=== PATIENT | female | born 1995 | race Caucasian/White ===

== ENCOUNTER 2023-09-12 21:21 | Outpatient (REF) | payer OTHER, SELFPAY ==
[2023-09-15 14:09] LABS: Age Gdln ACOG Testing Note (.); IGP, rfx Aptima HPV ASCU Note (.)
== END 2023-09-12 21:22 | disposition home or self-care (01) ==
LOC: LAB 21:21
PROVIDERS: Visit Provider Obstetrics & Gynecology
DX: Z12.4 Encounter for screening for malignant neoplasm of cervix (principal)
CPT/HCPCS: G0145

== ENCOUNTER 2024-09-16 20:10 | Outpatient (REF) | payer OTHER, SELFPAY ==
--- OUTSIDE RECORDS SUMMARY | 2024-09-16 20:26 | XMS_ITS | CCD ---
Author Organization [facility] Care Team Providers Care Clerk Entry Level Name Role Phone TIGRE JOHNSON Unavailable Unavailab le SYSTEM, PROVIDER NOT IN Unavailable Unavaila ble NON STAFF Primary Care Provider Unavailabl e DO Brendan Smith Jr Attending Provider Gracy Garcia Unavailable DR SULLY HUITRON Attending Unavailable ELANA, DR VIRK Consulting Unavailable ELANA, DR VIRK Admitting Unavailable SULLY HUITRON Attending Unavailable Ang Clark MD Primary Care Provider SANJEEV, ANG P Attending Unavailable SANJEEV, ANG P Primary Care Unavailable SANJEEV, ANG P Referring Unavailable SANJEEV, ANG P Primary Care Unavailable SANJEEV, ANG P Referring Unavailable SANJEEV, ANG P Primary Care Unavailable SANJEEV, ANG P Referring Unavailable SANJEEV, ANG P Primary Care Unavailable SANJEEV, ANG P Attending Unavailable SANJEEV, ANG P Referring Unavailable SANJEEV, ANG P Primary Care Unavailable SANJEEV, ANG P Attending Unavailable SANJEEV, ANG P Referring Unavailable SANJEEV, ANG P Primary Care Unavailable Unavailable Primary Care Provider Unavailabl e Allergies Allergy Classification Reported Allergen(s) Allergy Type Date of Onset Reaction(s) Facility (1 source) Penicillin V Drug Allergy Unknown [facility] Other (1 source) sulfaSALAzine Drug Allergy Unknown [facility] Other (6 sources) Penicillins; Translations: [PENICILLINS] Propensity to adverse reactions to drug 2 [facility] [employer] (7 sources) Sulfonamides (Antibiotic); Translations: [SULFA (SULFONAMIDE ANTIBIOTICS)] Propensity to adverse reactions to drug 2 [facility] (1 source) Penicillin G Drug Allergy 3 Rash [facility] Healthcare Medications Current Medications Medication Drug Class(es) Dates Sig (Normalized) Sig (Original) amphetamine aspartate 1.25 mg / amphetamine sulfate 1.25 mg / dextroamphetamine saccharate 1.25 mg / dextroamphetamine sulfate 1.25 mg oral tablet (14 sources) Central Nervous System Stimulant Start: 09-16-2024 take 1 tablet by mouth in the evening as needed, then take 1 tablet by mouth in the evening as needed dextroamphetamine- amphetamine (ADDERALL) 5 mg tablet Indications: Attention deficit hyperactivity disorder (ADHD), combined type Take one tablet by mouth between 12 pm and 1 pm as needed 30 tablet 09/16/2024 Active Start: 09-16-2024 take 1 capsule by mo ut once daily in the morning amphetamine-dextroamphetamine XR (ADDERA LL XR) 20 mg 24 hr capsule Indications: Attention deficit hyperactivity disorder (ADHD), combined type Take 1 capsule (20 mg total) by mouth every morning. Max Daily Amount: 20 mg 30 capsule 09/16/2024 Active Start: 08-14-2024 End: 09-14-2024 take 1 capsule by mouth once daily in the morning amphetamine-dextroamphetamine XR (ADDERA LL XR) 20 mg 24 hr capsule Indications: Attention deficit hyperactivity disorder (ADHD), combined type Take 1 capsule (20 mg total) by mouth every morning. Max Daily Amount: 20 mg 30 capsule 08/14/2024 09/14/2024 Discontinued (Reorder) Start: 07-09-2024 End: 08-14-2024 take 2 capsules by mouth once daily in the morning amphetamine-dextroamphetamine XR (ADDERA LL XR) 10 mg 24 hr capsule Indications: Attention deficit hyperactivity disorder (ADHD), combined type Take 2 capsules (20 mg total) by mouth every morning. Max Daily Amount: 20 mg 60 capsule 08/08/2024 08/14/2024 Discontinued (Reorder) Start: 07-08-2024 End: 09-14-2024 take 1 tablet by mouth in the evening as needed, then take 1 tablet by mouth in the evening as needed dextroamphetamine-amphetamine (ADDERALL) 5 mg tablet Indications: Attention deficit hyperactivity disorder (ADHD), combined type Take one tablet by mouth between 12 pm and 1 pm as needed 30 tablet 08/08/2024 09/14/2024 Discontinued (Reorder) Start: 01-08-2024 take 1 capsule by mo uth once daily in the morning amphetamine-dextroamphetamine XR (ADDERA LL XR) 10 mg 24 hr capsule Indications: Attention deficit hyperactivity disorder (ADHD), combined type Take 1 capsule (10 mg total) by mouth in the morning. Max Daily Amount: 10 mg. 30 capsule 0 01/08/2024 Active etonogestrel 68 mg drug impl ant (7 sources) Progestin etonogestrel-elu ting (Nexplanon) 68 mg contraceptive implant as directed Subcutaneous Active etonogestreL (NE XPLANON) 68 mg implant 1 each (68 mg total) by subdermal route once. Active gwastzsd-pyvg-MK-calcium &mi ns (THERAGRAN-M) 9 mg iron-400 mcg tablet (5 sources) ijiwrhpv-krpx-HV -calcium &mins (THERAGRAN-M) 9 mg iron-400 mcg tablet Take 1 tablet by mouth in the morning. Active zyhpdkfw-slev-JV -calcium &mins (THERAGRAN-M) 9 mg iron-400 mcg tablet Take 1 tablet by mouth in the morning. 0 Active Multivitamin preparation (1 source) take 1 tablet by niraj th once daily Multivitamin - 1 tablet Orally Once a day Active Completed/Discontinued Medications Medication Drug Class(es) Dates Sig (Normalized) Sig (Original) 24 hr dexmethylphenidate hydrochloride 15 mg extended release oral capsule (1 source) Central Nervous System Stimulant Start: 01-08-2024 End: 01-08-2024 take 1 capsule by mouth once daily dexmethylphenidate XR (FOCALIN XR) 15 mg 24 hr capsule Indications: Attention deficit hyperactivity disorder (ADHD), combined type Take 1 capsule (15 mg total) by mouth daily. Max Daily Amount: 15 mg 30 capsule 0 01/08/2024 01/08/2024 Discontinued Problems Active Problems Problem Classification Problem Date Documented Date Episodic/Chronic Attention-deficit, conduct, and disruptive behavior disorders (4 sources) Attention deficit hyperactivity disorder, combined type; Translations: [Attention-deficit hyperactivity disorder, combined type] 01-08-2024 Chronic Attention-deficit, conduct, and disruptive behavior disorders (1 source) Attention-deficit hyperactivity disorder, combined type; Translations: [Attention-deficit hyperactivity disorder, combined type] Onset: 01-08-2024 Chronic Immunizations and screening for infectious disease (1 source) Encounter for screening for human papillomavirus (HPV); Translations: [ENC SCREENING HUMAN PAPILLOMAVIRUS] Onset: 09-10-2022 Episodic Medical examination/evaluatio n (2 sources) Encounter for general adult medical examination without abnormal findings; Translations: [Encounter for general adult medical examination without abnormal findings] Onset: 02-13-2018 Episodic Unclassified (1 source) New Patient Onset: 01-08-2024 Past or Other Problems Problem Classification Problem Date Documented Da te Episodic/Chronic Mood disorders (5 sources) Mood disorders Onset: 01-08-2024 Resolved: 04-08-2024 01-08-2024 Other screening for suspected conditions (not mental disorders or infectious disease) (10 sources) Encounter for screening for malignant neoplasm of cervix; Translations: [Patient encounter status] Onset: 09-06-2022 Episodic Results Test Name Value Interpretation Reference Range Facility BASIC METABOLIC PANLon 01-22 Anion gap [Moles/Vol] 8 mmol/L Normal 5-15 [facility] Comment on above: Performed By: #### B MP #### [facility] ([id number]) [address] [place] [address] Calcium [Mass/Vol] 10.1 mg/dL Normal 8.5-10.5 [facility] Comment on above: Performed By: #### B MP #### [facility] ([id number]) [address], [address] [place] [address] Chloride [Moles/Vol] 100 mmol/L Normal 98-109 [facility] Comment on above: Performed By: #### B MP #### [facility] ([id number]) [address] [place] [address] CO2 [Moles/Vol] 30 mmol/L Normal 22-32 [facility] Comment on above: Performed By: #### B MP #### [facility] ([id number]) [address] [place] [address] Creatinine [Mass/Vol] 1.13 mg/dL High 0.40-1.00 [facility] Comment on above: Result Comment: METH OD TRACEABLE TO IDMS STANDARD Performed By: #### B MP #### [facility] ([id number]) [address], [address] [place] [address] GFR/1.73 sq M.predicted among non-blacks MDRD (S/P/Bld) [Vol rate/Area] 68 mL/min/{1.73_m2} Normal >59 [facility] Comment on above: Result Comment: Reported eGFR is based on the CKD-EPI 2020 equation that does not use a race coefficient. Performed By: #### B MP #### [facility] ([id number]) [address], [address] [place] [address] Glucose [Mass/Vol] 79 mg/dL Normal 65-99 [facility] Comment on above: Performed By: #### B MP #### [facility] ([id number]) [address] [facility] [facility] [place] [address] Potassium [Moles/Vol] 4.1 mmol/L Normal 3.5-5.0 [facility] Comment on above: Performed By: #### B MP #### [facility] ([id number]) [address], [address] [place] [address] Sodium [Moles/Vol] 138 mmol/L Normal 134-146 [facility] Comment on above: Performed By: #### B MP #### [facility] ([id number]) [address], [address] [place] [address] Urea nitrogen [Mass/Vol] 14 mg/dL Normal 5-23 [facility] Comment on above: Performed By: #### B MP #### [facility] ([id number]) [address] [place] [address] URINALYSISon 01-23-2024 Bilirubin Ql (U) Negative Normal NEG [facility] BLOOD/HGB Negative Normal NEG [facility] Color (U) YELLOW Normal YELLOW [facility] Glucose Ql (U) Negative Normal NEG [facility] Ketones Ql (U) Negative Normal NEG [facility] Leukocyte esterase Test strip Ql (U) Negative Normal NEG [facility] Nitrite Ql (U) Negative Normal NEG [facility] pH (U) 7.5 [pH] Normal 5.0-8.5 [facility] Protein Ql (U) Trace Abnormal NEG [facility] R.B.CELLS <1 Normal 0-5 [facility] Specific gravity (U) [Rel density] 1.011 Normal 1.003-1.035 [facility] SQUAMOUS EPITHELIUM 1 /hpf Normal 0-5 [facility] TURBIDITY CLEAR Normal CLEAR [facility] Urobilinogen (U) [Mass/Vol] mg/dL Normal <1.1 [facility] W.B.CELLS 1 /hpf Normal 0-5 [facility] BASIC METABOLIC PANLon 01-08 Anion gap [Moles/Vol] 9 mmol/L Normal 5-15 [facility] Comment on above: Performed By: #### Jadiel ROSS, 62309-3 #### [facility] ([id number]) [address] [place] [address] Calcium [Mass/Vol] 9.7 mg/dL Normal 8.5-10.5 [facility] Comment on above: Performed By: #### Jadiel ROSS, 97904-4 #### [facility] ([id number]) [address] [place] [address] Chloride [Moles/Vol] 101 mmol/L Normal 98-109 [facility] Comment on above: Performed By: #### Jadiel ROSS, 83092-6 #### [facility] ([id number]) [address] [place] [address] CO2 [Moles/Vol] 30 mmol/L Normal 22-32 [facility] Comment on above: Performed By: #### Jadiel ROSS, 91072-7 #### [facility] ([id number]) [address] [place] [address] Creatinine [Mass/Vol] 1.22 mg/dL High 0.40-1.00 [facility] Comment on above: Result Comment: METH OD TRACEABLE TO IDMS STANDARD Performed By: #### Jadiel ROSS, 98731-2 #### [facility] ([id number]) [address] [place] [address] GFR/1.73 sq M.predicted among non-blacks MDRD (S/P/Bld) [Vol rate/Area] 62 mL/min/{1.73_m2} Normal >59 [facility] Comment on above: Result Comment: Reported eGFR is based on the CKD-EPI 2020 equation that does not use a race coefficient. Performed By: #### Jadiel ROSS, 23277-8 #### [facility] ([id number]) [address] [place] [address] Glucose [Mass/Vol] 82 mg/dL Normal 65-99 [facility] Comment on above: Performed By: #### Jadiel ROSS, 65535-0 #### [facility] ([id number]) [address] [place] [address] Potassium [Moles/Vol] 4.1 mmol/L Normal 3.5-5.0 [facility] Comment on above: Performed By: #### Jadiel ROSS, 48849-1 #### [facility] ([id number]) [address] [place] [address] Sodium [Moles/Vol] 140 mmol/L Normal 134-146 [facility] Comment on above: Performed By: #### Jadiel ROSS, 35116-4 #### [facility] ([id number]) [address] [place] [address] Urea nitrogen [Mass/Vol] 18 mg/dL Normal 5-23 [facility] Comment on above: Performed By: #### Jadiel ROSS, 64766-0 #### [facility] ([id number]) [address], [facility] [address] [place] [address] Lipid 1996 panelon 4 Cholesterol [Mass/Vol] 237 mg/dL High 150-200 [facility] Comment on above: Performed By: #### Jadiel ROSS, 80061-3 #### [facility] ([id number]) [address], [facility] [address] [place] [address] Cholesterol in HDL [Mass/Vol] 85 mg/dL Normal >39 [facility] Comment on above: Result Comment: HDL <40 mg/dL - High Risk HDL > or = 40mg/dL- Desirable HDL >60 mg/dL - Negative Risk Performed By: #### Jadiel ROSS, 88243-8 #### [facility] ([id number]) [address], [address] [address] Cholesterol in LDL [Mass/Vol] 140 mg/dL High <130 [facility] Comment on above: Result Comment: LDL <100 mg/dL - Desirable LDL >160 mg/dL - High Risk Performed By: #### Jadiel ROSS, 61878-9 #### [facility] ([id number]) [address], [address] [place] [address] Cholesterol in VLDL [Mass/Vol] 12 mg/dL Normal 0-30 [facility] Comment on above: Performed By: #### Jadiel ROSS, 48007-3 #### [facility] ([id number]) [address], [address] [place] [address] CHOLESTEROL:HDL 2.8 Normal 1.0-5.0 [facility] Comment on above: Performed By: #### B CODY, 45978-1 #### [facility] ([id number]) [address], [address] [place] [address] Triglyceride [Mass/Vol] 59 mg/dL Normal 27-150 P [facility] Comment on above: Performed By: #### B CODY, 39788-3 #### [facility] ([id number]) [address], [address] [place] [address] PAP ACOG PANEL 2: 21 to 29on 09-15-2022 . . Normal [facility] Comment on above: Performed By: #### 4 [id number] #### [facility] [address] [place] [address] Dr. Elizabeth Perkins Age Gdln ACOG Testing - [facility] Comment on above: Performed By: #### 4 [id number] #### [facility] [address] [address] [address] Elizabeth Perkins DIAGNOSIS: Comment [facility] Comment on above: Result Comment: NEGA TIVE FOR INTRAEPITHELIAL LESION OR MALIGNANCY. Performed By: #### 4 [id number] #### [facility] [address] [place] [address] Dr. Elizabeth Perkins Methodology: Comment [facility] Comment on above: Result Comment: This liquid based ThinPrep(R) pap test was screened with the use of an image guided system. Performed By: #### 4 [id number] #### [facility] [address] [place] [address] Dr. Elizabeth Perkins Note: Comment [facility] Comment on above: Result Comment: The Pap smear is a screening test designed to aid in the detection of premalignant and malignant conditions of the uterine cervix. It is not a diagnostic procedure and should not be used as the sole means of detecting cervical cancer. Both false-positive and false-negative reports do occur. . Performed By: #### 4 [id number] #### [facility] [address] [address] [address] Elizabeth Perkins Performed by: Comment Normal [facility] Comment on above: Result Comment: Loni Piedra, Comber Setter (ASCP) Performed By: #### 4 [id number] #### [facility] [address] [address] [address] Elizabeth Perkins Reflex Criteria: Comment Normal [facility] Comment on above: Result Comment: The HPV DNA reflex criteria were not met with this specimen result therefore, no HPV testing was performed. . Performed By: #### 4 [id number] #### [facility] [address] [address] [address] Elizabeth Perkins Specimen adequacy: Comment Normal [facility] Comment on above: Result Comment: Sati sfactory for evaluation. Endocervical and/or squamous metaplastic cells (endocervical component) are present. Performed By: #### 4 [id number] #### [facility] [address] [address] [address] Elizabeth Perkins Albumin [Mass/volume] in Ser um or PlasmaOrdered By: Brendan Smith on 04-07-2022 Albumin [Mass/Vol] 4.2 g/dL 3.2-5.5 [facility] Cholesterol [Mass/volume] in Serum or PlasmaOrdered By: Brendan Smith on 04-07-2022 Cholesterol [Mass/Vol] 207 mg/dL 140-200 [facility] Comment on above: Chol less than 200 m g/dl low risk Chol 201-239 mg/dl borderline risk Chol 240 mg/dl and greater high risk Cholesterol in LDL Calc [Mas s/Vol]Ordered By: Brendan Smith on 04-07-2022 Cholesterol in LDL [Mass/Vol] 110 mg/dL 0-100 [facility] Comment on above: LDL ATP III CLASSIFI CATION LDL less than 100 mg/dL Optimal LDL 100-129 mg/dL Near or above optimal LDL 130-159 mg/dL Borderline high LDL 160-189 mg/dL High LDL greater than 189 mg/dL Very high Cholesterol in VLDL Calc [Ma ss/Vol]Ordered By: Brendan Smith on 04-07-2022 Cholesterol in VLDL [Mass/Vol] 15 mg/dL [facility] Comprehensive Metabolic Empo n 04-07-2022 Albumin [Mass/Vol] 4.2 g/dL Normal 3.2-5.5 [facility] Comment on above: Performed By: #### E BS CMP, EBS LIPID #### [facility] [address] [place] [address] [place] Albumin/Globulin [Mass ratio] 1.6 {ratio} Normal [facility] Comment on above: Performed By: #### E BS CMP, EBS LIPID #### [facility] [address] [place] [address] [place] ALP [Catalytic activity/Vol] 47 U/L Normal 32-92 [facility] Comment on above: Performed By: #### E BS CMP, EBS LIPID #### [facility] [address] [id number] [place] ALT [Catalytic activity/Vol] 35 U/L Normal 10-60 [facility] Comment on above: Performed By: #### E BS CMP, EBS LIPID #### [facility] [address] [id number] [place] AST [Catalytic activity/Vol] 33 U/L Normal 10-42 [facility] Comment on above: Performed By: #### E BS CMP, EBS LIPID #### [facility] [address] [id number] [place] Bilirubin [Mass/Vol] 0.4 mg/dL Normal 0.3-1.2 [facility] Comment on above: Performed By: #### E BS CMP, EBS LIPID #### [facility] [address] [id number] [place] Calcium [Mass/Vol] 9.7 mg/dL Normal 8.2-10.2 [facility] Comment on above: Performed By: #### E BS CMP, EBS LIPID #### [facility] [address] [id number] [place] Chloride [Moles/Vol] 103 mmol/L Normal 95-114 [facility] Comment on above: Performed By: #### E BS CMP, EBS LIPID #### [facility] [address] [place] [address] [place] CO2 [Moles/Vol] 27.8 mmol/L Normal 22.0-30.0 [facility] Comment on above: Performed By: #### E BS CMP, EBS LIPID #### [facility] [address] Creatinine [Mass/Vol] 1.07 mg/dL High 0.44-1.03 [facility] Comment on above: Performed By: #### E BS CMP, EBS LIPID #### [facility] [address] Estimated GFR ( Claritza > [address] [facility] Comment on above: Result Comment: GFR estimated reference range: According to KDOQI guidelines, <60 ml/min/1.73m2 is sufficient to diagnose a patient with chronic kidney disease. Performed By: #### E BS CMP, EBS LIPID #### [facility] [address] Estimated GFR (Non- Am > [address] [facility] Comment on above: Performed By: #### E BS CMP, EBS LIPID #### [facility] [address] Globulin (S) [Mass/Vol] 2.6 g/dL Normal [facility] Comment on above: Performed By: #### E BS CMP, EBS LIPID #### [facility] [address] [place] [address] [place] Glucose [Mass/Vol] 82 mg/dL Normal 70-100 [facility] Comment on above: Performed By: #### E BS CMP, EBS LIPID #### [facility] [address] [place] [address] [place] Potassium [Moles/Vol] 4.6 mmol/L Normal 3.5-5.1 [facility] Comment on above: Performed By: #### E BS CMP, EBS LIPID #### [facility] [address] [place] [address] [place] Protein [Mass/Vol] 6.8 g/dL Normal 6.1-7.9 [facility] Comment on above: Performed By: #### E BS CMP, EBS LIPID #### [facility] [address] [place] [address] [place] Sodium [Moles/Vol] 139 mmol/L Normal 136-146 [facility] Comment on above: Performed By: #### E BS CMP, EBS LIPID #### [facility] [address] [place] [address] [place] Urea nitrogen [Mass/Vol] 11 mg/dL Normal 9- [facility] Comment on above: Performed By: #### E BS CMP, EBS LIPID #### [facility] [address] [place] [address] [place] Creatinine and Glomerular fi ltration rate.predicted panel (S/P/Bld)Ordered By: Brendan Smith on 04-07-2022 Creatinine [Mass/Vol] 1.07 mg/dL 0.44-1.03 [facility] Estimated glomerular filtrat ion rate (GFR) non- AmericanOrdered By: Brendan Smith on 04-07-2022 GFR/1.73 sq M.predicted among non-blacks MDRD (S/P/Bld) [Vol rate/Area] > 60 mL/Min [facility] Globulin Calc (S) [Mass/Vol] Ordered By: Brendan Smith on 04-07-2022 Globulin (S) [Mass/Vol] 2.6 g/dL [facility] - Chemistry and C hemistry - challengeOrdered By: Brendan Smith on 04-07-2022 Glucose [Mass/Vol] 82 mg/dL 70-100 [facility] Lipid Profileon 04-07-2022 Cholesterol [Mass/Vol] 207 mg/dL High 140-200 [facility] Comment on above: Result Comment: Chol less than 200 mg/dl low risk Chol 201-239 mg/dl borderline risk Chol 240 mg/dl and greater high risk Performed By: #### E BS CMP, EBS LIPID #### [facility] [address] [place] [address] [place] Cholesterol in HDL [Mass/Vol] 82 mg/dL Normal 35-85 [facility] Comment on above: Result Comment: HDL CHOL ATP-III CLASSIFICATION Cardiovascular Risk HDL > or equal to 60 mg/dL LOW HDL < 40 mg/dL HIGH Performed By: #### E BS CMP, EBS LIPID #### [facility] [address] Cholesterol.total/Myla sterol in HDL [Mass ratio] 2.5 {ratio} Normal <5.0 [facility] Comment on above: Result Comment: PERF ORMED BY: [place] [id number] PATHOLOGIST HOSPICE ART THERAPIST ESTELA DOWLING M.D. Performed By: #### E BS CMP, EBS LIPID #### [facility] [address] [place] [address] LDL Cholesterol,Calculated 110 mg/dL High 0-100 [facility] Comment on above: Result Comment: LDL ATP III CLASSIFICATION LDL less than 100 mg/dL Optimal LDL 100-129 mg/dL Near or above optimal LDL 130-159 mg/dL Borderline high LDL 160-189 mg/dL High LDL greater than 189 mg/dL Very high Performed By: #### E BS CMP, EBS LIPID #### [facility] [address] [place] [address] Triglyceride w/Reflex 75 mg/dL Normal 35-149 [facility] Comment on above: Result Comment: TRIG ATP III CLASSIFICATION TRIG less than 150 mg/dL Normal TRIG 150-199 mg/dL Borderline high TRIG 200-500 mg/dL High TRIG greater than 500 mg/dL Very high Standard traceable to the Center for Disease Conrtrol and Prevention (CDC) test method. Performed By: #### E BS CMP, EBS LIPID #### [facility] [address] VLDL CHOLESTEROL 15 mg/dL Normal [facility] Comment on above: Performed By: #### E BS CMP, EBS LIPID #### [facility] [address] [place] [address] No Panel InformationOrdered By: Brendan Smith on 04-07-2022 Estimated GFR () > 60 mL/Min [facility] Comment on above: GFR estimated refere nce range: According to KDOQI guidelines, <60 ml/min/1.73m2 is sufficient to diagnose a patient with chronic kidney disease. Pharmacy Creatinine Clearance (Chem N/A [facility] Triglycerides Reflex 75 mg/dL 35-149 [facility] Comment on above: TRIG ATP III CLASSIF ICATION TRIG less than 150 mg/dL Normal TRIG 150-199 mg/dL Borderline high TRIG 200-500 mg/dL High TRIG greater than 500 mg/dL Very high Standard traceable to the Center for Disease Conrtrol and Prevention (CDC) test method. Protein [Mass/volume] in Ser um or PlasmaOrdered By: Brendan Smith on 04-07-2022 Protein [Mass/Vol] 6.8 g/dL 6.1-7.9 [facility] Serum or plasma alanine nicholas otransferase measurement without P-5'-P (enzymatic activiOrdered By: Brendan Smith on 04-07-2022 ALT No additional P-5'-P [Catalytic activity/Vol] 35 U/L 10-60 [facility] Serum or plasma albumin/glob ulin mass ratioOrdered By: Brendan Smith on 04-07-2022 Albumin/Globulin [Mass ratio] 1.6 {ratio} [facility] Serum or plasma alkaline kirk sphatase measurement (enzymatic activity/volume)Ordered By: Brendan Smith on 04-07-2022 ALP [Catalytic activity/Vol] 47 U/L 32-92 [facility] Serum or plasma aspartate am inotransferase measurement (enzymatic activity/volume)Ordered By: Brendan Smith on 04-07-2022 AST [Catalytic activity/Vol] 33 U/L 10-42 [facility] Serum or plasma calcium deondre urement (mass/volume)Ordered By: Brendan Smith on 04-07-2022 Calcium [Mass/Vol] 9.7 mg/dL 8.2-10.2 [facility] Serum or plasma chloride jessica surement (moles/volume)Ordered By: Brendan Smith on 04-07-2022 Chloride [Moles/Vol] 103 mmol/L 95-114 [facility] Serum or plasma high density lipoprotein (HDL) cholesterol measurementOrdered By: Brendan Smith on 04-07-2022 Cholesterol in HDL [Mass/Vol] 82 mg/dL 35-85 [facility] Comment on above: HDL CHOL ATP-III CLA SSIFICATION Cardiovascular Risk HDL > or equal to 60 mg/dL LOW HDL < 40 mg/dL HIGH Serum or plasma potassium me asurement (moles/volume)Ordered By: Brendan Smith on 04-07-2022 Potassium [Moles/Vol] 4.6 mmol/L 3.5-5.1 [facility] Serum or plasma sodium measu rement (moles/volume)Ordered By: Brendan Smith on 04-07-2022 Sodium [Moles/Vol] 139 mmol/L 136-146 [facility] Serum or plasma total biliru bin measurement (mass/volume)Ordered By: Brendan Smith on 04-07-2022 Bilirubin [Mass/Vol] 0.4 mg/dL 0.3-1.2 [facility] Serum or plasma total carbon dioxide measurement (moles/volume)Ordered By: Brendan Smith on 04-07-2022 CO2 [Moles/Vol] 27.8 mmol/L 22.0-30.0 [facility] Serum or plasma total choles terol/high density lipoprotein (HDL) cholesterol mass ratOrdered By: Brendan Smith on 04-07-2022 Cholesterol.total/Myla sterol in HDL [Mass ratio] 2.5 {ratio} [facility] Serum or plasma urea nitroge n measurement (mass/volume)Ordered By: Brendan Smith on 04-07-2022 Urea nitrogen [Mass/Vol] 11 mg/dL 07-08 [facility] Vital Signs Date Time Vital Sign Value Performing Clinician Facility 01-08-2024 08:42-0400 Body height 165.1 cm Ang Clark MD Work Phone: [facility] 01-08-2024 08:42-0400 Body mass index (BMI) [Ratio] 21.63 kg/m2 Ang Clark MD Work Phone: [facility] 01-08-2024 08:42-0400 Body weight 58.97 kg Ang Clark MD Work Phone: [facility] 01-08-2024 08:42-0400 Diastolic blood pressure 80 mm[Hg] Ang Clark MD Work Phone: [email or web address] 01-08-2024 08:42-0400 Heart rate 64 /min Ang Clark MD Work Phone: [email or web address] 01-08-2024 08:42-0400 Respiratory rate 18 /min Ang Clark MD Work Phone: [email or web address] 01-08-2024 08:42-0400 SaO2% (BldA) [Mass fraction] 92 % Ang Clark MD Work Phone: [email or web address] 01-08-2024 08:42-0400 Systolic blood pressure 120 mm[Hg] Ang Clark MD Work Phone: [email or web address] 05-25-2022 09:00-0400 Body height 166.37 cm Gracy Garcia Other [facility] Other 05-25-2022 09:00-0400 Body mass index (BMI) [Ratio] 20.42 kg/m2 Gracy Garcia Other [facility] Other 05-25-2022 09:00-0400 Body temperature 96.9 [degF] Gracy Garcia Other [facility] Other 05-25-2022 09:00-0400 Body weight 56.52 kg Gracy Garcia Other [facility] Other 05-25-2022 09:00-0400 Diastolic blood pressure 60 mm[Hg] Gracy Garcia Other [facility] Other 05-25-2022 09:00-0400 Respiratory rate 18 /min Gracy Garcia Other [facility] Other 05-25-2022 09:00-0400 SaO2% (BldA) [Mass fraction] 96 % Gracy Garcia Other [facility] Other 05-25-2022 09:00-0400 Systolic blood pressure 100 mm[Hg] Gracy Garcia Other [facility] Other Encounters Encounter Date Encounter Type Care Provider Facility Start: 09-16-2024 End: 09-16-2024 Bamboo flowsheet Sully Elana DO Work Phone: [facility] Start: 09-16-2024 End: 09-16-2024 Bamboo flowsheet Sully Elana DO Work Phone: [facility] Start: 09-14-2024 End: 09-16-2024 Refill Ang Clark MD Work Phone: [facility] Comment on above: Attention deficit hy peractivity disorder (ADHD), combined type Start: 08-14-2024 End: 08-14-2024 Refill Ang Clark MD Work Phone: [facility] Comment on above: Attention deficit hy peractivity disorder (ADHD), combined type Start: 08-08-2024 End: 08-08-2024 Refill Ang Clark MD Work Phone: [facility] Comment on above: Attention deficit hy peractivity disorder (ADHD), combined type Start: 07-08-2024 End: 07-08-2024 ambulatory ANG P SANJEEV [facility] Start: 04-08-2024 End: 04-08-2024 ambulatory ANG P SANJEEV [facility] Start: 01-23-2024 End: 01-23-2024 ambulatory ANG P SANJEEV [facility] Start: 01-09-2024 End: 01-09-2024 Orders Only Ang Clark MD Work Phone: [facility] Comment on above: Elevated serum creat inine (Primary Dx); Decreased GFR Start: 01-08-2024 End: 01-08-2024 Office outpatient visit 25 minutes Ang Clark MD Work Phone: [facility] Comment on above: Attention deficit hy peractivity disorder (ADHD), combined type (Primary Dx); Screening, lipid Start: 01-08-2024 End: 01-10-2024 ambulatory ANG CLARK [facility] Start: 09-12-2023 End: 09-12-2023 ambulatory SULLY HUITRON Not Available Start: 09-06-2022 End: 09-06-[address] SULLY HUITRON Facility:[facility] Start: 05-25-2022 End: 05-25-2022 ambulatory Gracy Garcia Other [facility] Other Start: 05-25-2022 Encounter for genera l adult medical examination without abnormal findings Gracy Garcia [facility] Start: 05-25-2022 Initial preventive medicine new pt age 18-39yrs Gracy Garcia [facility] [place] Start: 04-07-2022 End: 04-07-2022 Departed Referred [facility] 250 Start: 02-13-2018 End: 02-13-2018 Ambulatory TIGRE ESPINOSA [facility] Start: 07-27-2017 End: 07-27-2017 Ambulatory PROVIDER NOT IN SYSTEM [facility] Procedures Date Procedure Procedure Detail Performing Clinician Start: 04-08-2024 Follow-up visit Follow-up ANG CLARK Start: 04-08-2024 Adult depression scr eening assessment Ang Clark MD Work Phone: Start: 01-08-2024 Adult depression scr eening assessment Ang Clark MD Work Phone: Start: 09-06-2022 Microscopic observat ion [Identifier] in Cervix by Cyto stain Ang Clark MD Work Phone: Plan of Treatment Date Care Activity Detail Author Start: 04-07-2032 DTaP,Tdap and Td Vaccines (8 - Td or Tdap) DTaP,Tdap and Td Vaccines (8 - Td or Tdap) [facility] Start: 09-06-2025 Screening for malign ant neoplasm of cervix Pap Smear [facility] Start: 04-08-2025 Adult BMI Screening Adult BMI Screen ing [facility] Start: 04-08-2025 Depression Screening Depression Scre ening [facility] Start: 04-08-2025 Tobacco Screening Tobacco Screening [facility] Start: 01-07-2025 Adult BMI Screening Adult BMI Screen ing [facility] Start: 01-07-2025 Depression Screening Depression Scre ening [facility] Start: 01-07-2025 Tobacco Screening Tobacco Screening [facility] Start: 10-08-2024 End: 10-08-2024 Telemedicine consultation with patient 10/08/2024 8:00 AM EST Telemedicine [facility] [address] [place] [phone] Ang Clark MD [address] [place] [id number] [facility] Start: 09-16-2024 End: 09-16-2024 Patient encounter procedure 09/16/2024 1:00 PM EST Office Visit [facility] [address] [place] [phone] Sully Huitron DO [address] [place] [address] Arrived [facility] Comment on above: Arrived Start: 06-16-2024 COVID-19 Vaccine ( season) COVID-19 Vaccine ( season) [facility] Start: 06-16-2024 COVID-19 Vaccine ( season) COVID-19 Vaccine ( season) [facility] Start: 06-16-2024 Influenza vaccination [facility] Start: 04-08-2024 End: 04-08-2024 Patient encounter procedure 04/08/2024 4:00 PM EDT Office Visit [facility] [address] [place] [phone] Ang Clark MD [address] [address] [facility] Start: 01-23-2024 End: 01-23-2024 Patient encounter procedure 01/23/2024 2:30 PM EDT Appointment [email or web address] [place] [facility] [address] [place] [address] [email or web address] [place] [facility] Start: 01-09-2024 End: 01-09-2024 Patient encounter procedure 01/09/2024 7:10 AM EDT Appointment [email or web address] [place] [facility] [place] [address] [email or web address] [place] [facility] Start: 06-16-2023 COVID-19 Vaccine ( season) COVID-19 Vaccine () [facility] Start: 11-08-2021 DTaP,Tdap and Td Vaccines (7 - Td or Tdap) DTaP,Tdap and Td Vaccines (7 - Td or Tdap) [facility] End: 01-07-2025 Basic metabolic 2000 panel - Serum or Plasma Basic Metabolic Panel Lab Routine Attention deficit hyperactivity disorder (ADHD), combined type 1 Occurrences starting 01/08/2024 until 01/07/2025 [facility] Comment on above: 1 Occurrences starti ng 01/08/2024 until 01/07/2025 End: 01-08-2025 Basic metabolic 2000 panel - Serum or Plasma Basic Metabolic Panel Lab Routine Elevated serum creatinine Decreased GFR 1 Occurrences starting 01/09/2024 until 01/08/2025 [facility] Work Phone: Comment on above: 1 Occurrences starti ng 01/09/2024 until 01/08/2025 End: 01-07-2025 Lipid 1996 panel - Serum or Plasma Lipid profile Lab Routine Screening, lipid 1 Occurrences starting 01/08/2024 until 01/07/2025 [facility] Work Phone: Comment on above: 1 Occurrences starti ng 01/08/2024 until 01/07/2025 End: 01-08-2025 Urinalysis Urinalysis (clean catch) Lab Routine Elevated serum creatinine Decreased GFR 1 Occurrences starting 01/09/2024 until 01/08/2025 [facility] Comment on above: 1 Occurrences starti ng 01/09/2024 until 01/08/2025 Immunizations Immunization Date Immunization Notes Care Provider Fa [facility] 08-04-2023 influenza, injectabl e, quadrivalent, preservative free Ang Clark MD Work Phone: [facility] 08-04-2023 influenza virus vacc ine, unspecified formulation Ang Clark MD Work Phone: [facility] 04-07-2022 tetanus toxoid, redu alfredo diphtheria toxoid, and acellular pertussis vaccine, adsorbed Ang Clark MD Work Phone: [facility] 06-10-2019 Influenza, injectabl e, Madin [place] Canine Kidney, preservative free, quadrivalent Ang Clark MD Work Phone: [facility] 03-30-2018 hepatitis B vaccine, adult dosage Ang Clark MD Work Phone: [facility] 02-27-2018 hepatitis B vaccine, adult dosage Ang Clark MD Work Phone: [facility] 07-18-2016 influenza, injectabl e, quadrivalent, preservative free Ang Clark MD Work Phone: [facility] 07-20-2015 influenza, injectabl e, quadrivalent, preservative free Ang Clark MD Work Phone: [facility] 06-19-2012 hepatitis A vaccine, pediatric/adolescent dosage, 2 dose schedule Ang Clark MD Work Phone: [facility] 05-22-2012 human papilloma viru s vaccine, quadrivalent Ang Clark MD Work Phone: [facility] 05-22-2012 meningococcal polysaccharide (groups A, C, Y and W-135) diphtheria toxoid conjugate vaccine (MCV4P) Ang Clark MD Work Phone: [facility] 02-14-2012 human papilloma viru s vaccine, quadrivalent Ang Clark MD Work Phone: [facility] 11-08-2011 hepatitis A vaccine, pediatric/adolescent dosage, 2 dose schedule Ang Clark MD Work Phone: [facility] 11-08-2011 human papilloma viru s vaccine, quadrivalent Ang Clark MD Work Phone: [facility] 11-08-2011 tetanus toxoid, redu alfredo diphtheria toxoid, and acellular pertussis vaccine, adsorbed Ang Clark MD Work Phone: [facility] 05-21-2001 diphtheria, tetanus toxoids and acellular pertussis vaccine, unspecified formulation Ang Clark MD Work Phone: [facility] 05-21-2001 measles, mumps and rubella virus vaccine Ang Clark MD Work Phone: [facility] 09-29-1997 diphtheria, tetanus toxoids and pertussis vaccine Ang Clark MD Work Phone: [facility] 09-29-1997 haemophilus influenz ae type b vaccine, conjugate unspecified formulation Ang Clark MD Work Phone: [facility] 09-29-1997 poliovirus vaccine, unspecified formulation Ang Clark MD Work Phone: [facility] 06-30-1997 diphtheria, tetanus toxoids and pertussis vaccine Ang Clark MD Work Phone: [facility] 06-30-1997 measles, mumps and rubella virus vaccine Ang Clark MD Work Phone: [facility] 1996 diphtheria, tetanus toxoids and pertussis vaccine Ang Clark MD Work Phone: [facility] 1996 hepatitis B vaccine, pediatric or pediatric/adolescent dosage Ang Clark MD Work Phone: [facility] 1996 poliovirus vaccine, unspecified formulation Ang Clark MD Work Phone: [facility] 1996 diphtheria, tetanus toxoids and pertussis vaccine Ang Clark MD Work Phone: [facility] 1996 haemophilus influenz ae type b vaccine, conjugate unspecified formulation Ang Clark MD Work Phone: [facility] 1996 poliovirus vaccine, unspecified formulation Ang Clark MD Work Phone: [facility] 1996 diphtheria, tetanus toxoids and pertussis vaccine Ang Clark MD Work Phone: [facility] 1996 haemophilus influenz ae type b vaccine, conjugate unspecified formulation Ang Clark MD Work Phone: [facility] 1996 hepatitis B vaccine, pediatric or pediatric/adolescent dosage Ang Clark MD Work Phone: [facility] 1996 poliovirus vaccine, unspecified formulation Ang Clark MD Work Phone: [facility] 1996 haemophilus influenz ae type b vaccine, conjugate unspecified formulation Ang Clark MD Work Phone: [facility] 1996 hepatitis B vaccine, pediatric or pediatric/adolescent dosage Ang Clark MD Work Phone: [facility] Payers Date Payer Category Payer Commercial Managed C are - PPO [employer] [id number] 2023 Unknown [employer] M MO [employer] [id number] 2023-Present [phone] [address] [place] [address] [id number] 2023 Private Health Insurance [employer] [id number] 2023 Unknown [id number] 1996 Unknown [id number] 1996 Unknown [id number] 1996 Unknown [id number] 1996 Unknown [id number] 1996 Unknown [id number] 1996 Unknown [id number] 1996 Unknown [id number] 1996 Unknown [id number] 1959 Unknown [id number] Self-pay Self Pay [id number] Unknown [place] [id number] Social History Date Type Detail Facility Tobacco smoking stat us TNIS Unknown if ever smoked [facility] Work Phone: Start: 1995 Sex Assigned At Female [facility] Start: 09-12-2023 End: 01-08-2024 Sex Assigned At [facility] Start: 08-30-2023 End: 01-08-2024 Tobacco smoking status NHIS Never smoked tobacco [facility] Start: 01-08-2024 Tobacco use and exposure Smokeless tobacco non-user [facility] Start: 01-08-2024 End: 04-08-2024 Alcohol intake Ex-drinker (finding) [facility] Start: 09-12-2023 End: 01-08-2024 History of Social function [facility] How hard is it for y ou to pay for the very basics like food, housing, medical care, and heating Not hard at all [facility] Start: 11-02-2021 Alcohol Comment RARE [facility] Start: 1995 Sex Assigned At Not on file [facility] Start: 05-21-2015 Sex Female (finding) [facility] Start: 09-05-2023 Gender identity Identifies as female gender (finding) [facility] Start: 09-12-2023 Alcoholic beverage intake Current drinker of alcohol (finding) [facility] How often to you hav e a drink containing alcohol? Monthly or less [facility] How many standard drinks containing alcohol do you have on a typical day? 3 or 4 [facility] How often do you hav e 6 or more drinks on 1 occasion? Never [facility] Start: 09-05-2023 Sexual orientation Heterosexual (finding) [facility] Clinical Notes 05-25-2022 to 08-14-2024 Telephone Encounter - Rafia Alatorre - 08/14/2024 12:47 PM EDTTelephone Encounter - Ang Clark MD - 08/14/2024 12:47 PM EDTTelephone Encounter - Rafia Alatorre - 08/14/2024 12:47 PM EDT Note Date & Type Note Facility 08-14-2024 Miscellaneous Notes Patient calling stating [facility] of 10[facility] adder[facility]. Can we change script back to 20 mg once a day. Please advise Rx sent Patient would like this to go [place] [facility] [place] [address] [place] Please advise Pharmacy changed and repended in encounter Addended by: LEELEE CHOWDARY on: 08/14/2024 01:44 PM Modules accepted: Orders Addended by: ANG CLARK on: 08/14/2024 04:56 PM Modules accepted: Orders documented in this encounter [facility] 08-14-2024 Note Addended by: LEELEE CHOWDARY on: 08/14/2024 01:44 PM Modules accepted: Orders [facility] 08-14-2024 Note Addended by: ANG CLARK on: 08/14/2024 04:56 PM Modules accepted: Orders [facility] 08-14-2024 Telephone encounter Note Patient calling stating [facility] 10[facility]der[facility]R. Can we change script back to 20 mg once a day. Please advise [facility] 08-14-2024 Telephone encounter Note Rx sent [facility] 08-14-2024 Telephone encounter Note Patient would like this to go to [facility] on [address] [place] if possible. Please advise [facility] 08-14-2024 Telephone encounter Note Pharmacy changed and repended in encounter [facility] 01-08-2024 History of Present illness Narrative [facility] Department of Internal Medicine Outpatient Progress Note Patient: Laurel Lorenzo : 1995 Date: 01/08/2024 Subjective Laurel Lorenzo is a 28 y.o. 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, struggling a lot to not be distracted, keep getting up notices she can't focus on a movie that they watch Talks a lot, always has to do multiple things at once Struggles to come home and read when she has to study - does better if on desk bike If sidetracked, completely forgets the last thing she was doing Struggles with attention to detail or makes mistakes - yes Difficulty staying focused on lengthy or challenging tasks, conversations - yes Does not seem to listen when spoken to directly or mind seems elsewhere - yes Difficulty following instructions or finishing tasks - yes Difficulty with organization, deadlines or time management - does okay generally Avoids tasks requiring sustaind mental effort - a lot of procrastination, never on time Loses things frequently - no Easily distracted or sidetracked - yes Forgetful in daily activities - yes Fidgets, squirms yes Frequently leaves seat when remaining seated is expected yes Feels restless yes Often on the go yes Talks excessively or interrupts yes History reviewed. No pertinent past medical history. Outpatient Encounter Medications as of 01/08/2024 Medication Sig Dispense Refill etonogestreL (NEXPLANON) 68 mg implant 1 each (68 mg total) by subdermal route once. qyhlmnmy-vohc-VT-calcium &mins (THERAGRAN-M) 9 mg iron-400 mcg tablet Take 1 tablet by mouth in the morning. amphetamine-dextroamphetamine XR (ADDERALL XR) 10 mg 24 hr capsule Take 1 capsule (10 mg total) by mouth in the morning. Max Daily Amount: 10 mg. 30 capsule 0 [DISCONTINUED] dexmethylphenidate XR (FOCALIN XR) 15 mg 24 hr capsule Take 1 capsule (15 mg total) by mouth daily. Max Daily Amount: 15 mg 30 capsule 0 No facility-administered encounter medications on file as of 01/08/2024. Allergies Allergen Reactions Penicillins Rash Sulfa (Sulfonamide Antibiotics) Rash infancy Family History Problem Relation Age of Onset Thyroid disease Mother Graves' disease Mother Breast cancer Maternal Grandmother sisters also had breast ca Ovarian cancer Neg Hx Colon cancer Neg Hx Skin cancer Neg Hx Social History Socioeconomic History Marital status: Single Spouse name: Not on file Number of children: Not on file Years of education: Not on file Highest education level: Not on file Occupational History Not on file Tobacco Use Smoking status: Never Smokeless tobacco: Never Substance and Sexual Activity Alcohol use: Not Currently Comment: RARE Drug use: Not on file Sexual activity: Yes Partners: Male Other Topics Concern Not on file Social History Narrative Not on file Social Determinants of Health Financial Resource Strain: Low Risk (01/05/2024) Overall Financial Resource Strain (CARDIA) Difficulty of Paying Living Expenses: Not hard at all Food Insecurity: No Food Insecurity (01/05/2024) Hunger Screening Food Insecurity - Worry: Never True Food Insecurity - Inability: Never True Transportation Needs: No Transportation Needs (01/05/2024) PRAPARE - Transportation Lack of Transportation (Medical): No Lack of Transportation (Non-Medical): No Physical Activity: Not on file Stress: Not on file Social Connections: Not on file Interpersonal Safety: Not on file Housing Instability: Low Risk (01/05/2024) Housing Instability Housing Instability: No The following portions of the patient's history were reviewed and updated as appropriate: allergies, current medications, past family history, past medical history, past social history, past surgical history, problem list, and medication reconciliation was completed including current medication and post discharge medication. Review of Systems Constitutional: Negative for chills, fever and unexpected weight change. HENT: Negative for congestion, ear pain and sore throat. Eyes: Negative for pain and visual disturbance. Respiratory: Negative for cough, chest tightness, shortness of breath and wheezing. Cardiovascular: Negative for chest pain and palpitations. Gastrointestinal: Negative for abdominal pain, constipation, diarrhea, nausea and vomiting. Genitourinary: Negative for dysuria and hematuria. Musculoskeletal: Negative for arthralgias and back pain. Skin: Negative for color change and rash. Neurological: Negative for dizziness, syncope, weakness and light-headedness. Psychiatric/Behavioral: Positive for decreased concentration. Negative for dysphoric mood, self-injury and suicidal ideas. The patient is not nervous/anxious. All other systems reviewed and are negative. Objective BP 120/80 (BP Site: Left Arm, BP Postition: Sitting, BP CUFF SIZE: M (9-13 inches)) Pulse 64 Resp 18 Ht 165.1 cm (5' 5 ) Wt 59 kg (130 lb) LMP (LMP Unknown) Comment: IMPLANT SpO2 92% BMI 21.63 kg/m The ASCVD Risk score (Fred[place] DK, et al., 2019) failed to calculate for the following reasons: The 2019 ASCVD risk score is only valid for ages 40 to 79 Depression Screening Total Score: 0 Physical Exam Vitals and nursing note reviewed. Constitutional: General: She is not in acute distress. Appearance: She is well-developed. She is not diaphoretic. HENT: Head: Normocephalic and atraumatic. Right Ear: External ear normal. Left Ear: External ear normal. Nose: Nose normal. Eyes: General: No scleral icterus. Right eye: No discharge. Left eye: No discharge. Conjunctiva/sclera: Conjunctivae normal. Neck: Trachea: No tracheal deviation. Cardiovascular: Rate and Rhythm: Normal rate and regular rhythm. No extrasystoles are present. Heart sounds: Normal heart sounds. No murmur heard. No friction rub. No gallop. Pulmonary: Effort: Pulmonary effort is normal. No respiratory distress. Breath sounds: Normal breath sounds and air entry. No decreased breath sounds, wheezing, rhonchi or rales. Abdominal: General: Bowel sounds are normal. There is no distension. Palpations: Abdomen is soft. Tenderness: There is no abdominal tenderness. There is no guarding or rebound. Musculoskeletal: General: No deformity. Normal range of motion. Cervical back: Normal range of motion and neck supple. Right lower leg: No edema. Left lower leg: No edema. Skin: General: Skin is warm and dry. Findings: No erythema or rash. Neurological: Mental Status: She is alert and oriented to person, place, and time. Comments: CN II-XII grossly intact Psychiatric: Mood and Affect: Mood and affect normal. Speech: Speech normal. Behavior: Behavior normal. Behavior is cooperative. Thought Content: Thought content normal. Judgment: Judgment normal. Pertinent labs reviewed. Assessment/Plan 28-year-old female [facility]. Clinical history reviewed and updated as indicated. Patient has a history of ADHD with significant symptoms that are disruptive to daily functioning dating back to childhood, persisting into adulthood. Current symptoms are not accounted for by an alternative diagnosis and patient is likely to benefit from combination of medical and behavioral therapy. Provided counseling on behavioral interventions and resources. Will check BMP to establish baseline renal function as well as screening lipid panel as age-appropriate testing. Patient was counseled on risks, benefits and alternatives to stimulant therapy, anticipated effects, potential side effects and need for 90 day med checks. Agreeable to proceed. Focalin unavailable due to national shortage, will prescribe Adderall in its places first-line therapy. Sent to pharmacy [facility] was seen today for new patient. Diagnoses and all orders for this visit: Attention deficit hyperactivity disorder (ADHD), combined type - Basic Metabolic Panel; Future - Discontinue: dexmethylphenidate XR (FOCALIN XR) 15 mg 24 hr capsule; Take 1 capsule (15 mg total) by mouth daily. Max Daily Amount: 15 mg - amphetamine-dextroamphetamine XR (ADDERALL XR) 10 mg 24 hr capsule; Take 1 capsule (10 mg total) by mouth in the morning. Max Daily Amount: 10 mg. Screening, lipid - Lipid profile; Future Return if symptoms worsen or fail to improve, for Next scheduled follow up. ANG Clark MD Electronically Signed 01/08/2024 10:36 AM Total time spent was 34 minutes: Preparing to see the patient (e.g., review of tests) Obtaining and/or reviewing separately obtained history Performing a medically appropriate examination and/or evaluation Counseling and educating the patient/family/caregiver Ordering medications, tests, or procedures Documenting clinical information in the electronic or other health record All elements from this note, including those copied from previous encounters, have been reviewed and appropriately edited by ANG Clark MD. This note was completed using a voice automatic paint sprayer operator system. Every effort was made to ensure accuracy. However, inadvertent computerized automatic paint sprayer operator errors may be present. Please contact author for any clarification documented in this encounter [facility] 01-08-2024 Instructions Ang Clark MD - 01/08/2024 9:00 AM EDT [email or web address] documented in this encounter [facility] Evaluation note Encounter Date Diagnosis Assessment Notes May, Well adult exam (ICD-10 - Z00.00) Recent pillars reviewed with patient. Follow routinely with eye doctor and dentist. Patient is advised to work on healthy diet choices and appropriate servings, weight control, regular exercise as directed, reduced fat intake, and salt avoidance. Patient voiced understanding of this and agrees to this plan. [facility] Other Evaluation noteNo assessment information available [facility] Work Phone: Evaluation note* Diagnosis Attention deficit hyperactivity disorder (ADHD), combined type- Primary Screening, lipid documented in this encounter [facility]* Diagnosis Elevated serum creatinine- Primary Other nonspecific findings on examination of blood Decreased GFR [facility] Diagnosis Attention deficit hyperactivity disorder (ADHD), combined type [facility] Diagnosis Attention deficit hyperactivity disorder (ADHD), combined type [facility] Narrative - Reported* Type Description Date Surgical History WISDOM TEETH [employer] Other InstructionsNot on filedocumented in this encounter [facility] System[facility]ructionsNot on filedocumented in this encounter [facility] System[facility]ructionsNot on filedocumented in this encounter [facility] system System Summary Purpose Family History No Family History Records FoundNo Family History Records FoundNo Family History Records FoundNo Family History Records FoundNo Family History Records Found Advance Directives Advance Directive Response Recorded Date/ Time Advance Directives No December 15 5:14pm Chief Complaint and Reason for Visit Chief Complaint New Employee Screeni ng Additional Source Comments INFORMATION SOURCE (unrecogn ized section and content) DATE CREATED AUTHOR 04/05/2018 [facility] DATE CREATED AUTHOR AUTHOR'S ORGANIZ ATION 04/08/2022 [facility] DATE CREATED AUTHOR AUTHOR'S ORGANIZ ATION 09/16/2022 [facility] DATE CREATED AUTHOR AUTHOR'S ORGANIZ ATION 09/13/2023 [facility] DATE CREATED AUTHOR AUTHOR'S ORGANIZ ATION 07/10/2024 [facility] Care Teams (unrecognized sec tion and content) Team Status: Inactive Member Role Status Dates NON STAFF Primary Care Provider Active Brendan Smith Jr, DO Attending Provider Active Team Status: Active Member Role Status Dates NON STAFF Primary Care Provider Active Clerk Entry Level Relationship Specialty Start Date End Date Ang Clark MD [address] [facility], [address] [place] [address] PCP - General Internal Medicine 01/08/24 Clerk Entry Level Relationship Specialty Start Date End Date Ang Clark MD [address] [facility], [address] [place] [address] PCP - General Internal Medicine 01/08/24 Clerk Entry Level Relationship Specialty Start Date End Date Ang Clark MD [address] [facility], [address] [place] [address] PCP - General Internal Medicine 01/08/24 Clerk Entry Level Relationship Specialty Start Date End Date Ang Clark MD [address] [place] [address] PCP - General Internal Medicine 01/08/24 Goals (unrecognized section and content) Goals may be documented in a n alternate sectionNo InformationNot on filedocumented as of this encounterNot on filedocumented as of this encounterNot on filedocumented as of this encounterNot on filedocumented as of this encounterNot on filedocumented as of this encounter REASON FOR VISIT (unrecogniz ed section and content) Reason Comments New Patient Patient is [facility] to [facility]. Patient would like to discuss getting ADHD treatment. Reason Onset Date Comments Med Refill 08/08/2024 Reason Onset Date Comments Med Refill 09/14/2024 FOR RECORDS PERTAINING TO PATIENTS WHO ARE OR HAVE BEEN ENROLLED IN A CHEMICAL DEPENDENCY/SUBSTANCEABUSE PROGRAM, SOME INFORMATION MAY BE OMITTED. This clinical summary was aggregated from multiple sources. Caution should be exercised in using it in the provision of clinical care. This summary normalizes information from multiple sources, and as a consequence, information in this document may materially change the coding, format and clinical context of patient data. In addition, data may be omitted in some cases. CLINICAL DECISIONS SHOULD BE BASED ON THE PRIMARY CLINICAL RECORDS. [facility]. provides no warranty or guarantee of the accuracy or completeness of information in this document.
== END 2024-09-16 20:11 | disposition home or self-care (01) ==
LOC: LAB 20:10
PROVIDERS: Visit Provider Obstetrics & Gynecology
DX: Z01.419 Encounter for gynecological examination (general) (routine) without abnormal findings (principal)
CPT/HCPCS: 88175

== ENCOUNTER 2025-09-24 21:23 | Outpatient (REF) | payer OTHER, SELFPAY ==
--- OUTSIDE RECORDS SUMMARY | 2025-09-24 21:27 | XMS_ITS | CCD ---
Author Organization [facility] Care Team Providers Care Journeyman Welder Name Role Phone TIGRE JOHNSON Unavailable Unavailab le SYSTEM, PROVIDER NOT IN Unavailable Unavaila ble NON STAFF Primary Care Provider UnavailDO Brendan Mcdaniel Jr Attending Provider Gracy Garcia Unavailable DR DANNY HUITRON Attending Unavailable ELANA, DR VIRK Consulting Unavailable ELANA, DR VIRK Admitting Unavailable Unavailable Primary Care Provider UnavailDANNY Nelson Attending Unavailable Ang Clark MD Primary Care Provider [phone] Ang Clark MD Primary Care Provider [phone] EDUARDO, ANG P Attending Unavailable EDUARDO, ANG P Referring Unavailable EDUARDO, ANG P Primary Care Unavailable EDUARDO, ANG P Attending Unavailable EDUARDO, ANG P Referring Unavailable EDUARDO, ANG P Primary Care Unavailable EDUARDO, ANG P Referring Unavailable EDUARDO, ANG P Primary Care Unavailable EDUARDO, ANG P Attending Unavailable EDUARDO, ANG P Referring Unavailable EDUARDO, ANG P Primary Care Unavailable EDUARDO, ANG P Attending Unavailable EDUARDO, ANG P Referring Unavailable EDUARDO, ANG P Primary Care Unavailable EDUARDO, ANG P Referring Unavailable EDUARDO, ANG P Primary Care Unavailable Ang Clark MD Primary Care Provider Allergies Allergy ClassificationReported Allergen(s)Allergy TypeDate of OnsetReaction(s) Facility (1 source)Penicillin VDrug AllergyUnkQingguo Other (1 source)sulfaSALAzineDrug AllergyUnkQingguo Other (4 sources)Penicillin GDrug Rxkkjxo33-37-8398WyhdVV[facility] (20 sources)Sulfonamides (Antibiotic)Drug Xxkhnbk87-20-6654MjtfNhzItijcv [facility] (18 sources)Penicillins; Translations: [PENICILLINS]Propensity to adverse reactions to dzej97-56-7271CfmrOgoZbctqf Health System Work Phone: (14 sources)PenicillinsPropensity to adverse reactions to wikz80-68-2054[facility] Work Phone: (1 source)Sulfonamides (Antibiotic); Translations: [SULFA (SULFONAMIDE ANTIBIOTICS)]Propensity to adverse reactions to drug (disorder)11-02-2021 [facility] Medications Current Medications MedicationDrug Class(es)DatesSig (Normalized)Sig (Original)24 hr amphetamine aspartate 5 mg / amphetamine sulfate 5 mg / dextroamphetamine saccharate 5 mg / dextroamphetamine sulfate 5 mg extended release oral capsule (20 sources)Central Nervous System StimulantStart: 24-37-6972mnip 1 capsule by mouth once daily in the morningamphetamine-dextroamphetamine XR (ADDERALL XR) 20 mg 24 hr capsule Indications: Attention deficit hyperactivity disorder (ADHD), combined type Take 1 capsule (20 mg total) by mouth every morning. MaxDaily Amount: 20 mg 30 capsule 08/21/2025 ActiveStart: 43-13-4981gbou 1 tablet by mouth in the evening as needed, then take 1 tablet by mouth in the evening as neededdextroamphetamine-amphetamine (ADDERALL) 5 mg tablet Indications: Attention deficit hyperactivity disorder (ADHD), combined type Take one tablet by mouth between 12 pm and 1 pm as needed 30 tablet 06/28/2025 ActiveStart: 46-99-3569hnuh 1 tablet by mouth in the evening as needed, then take 1 tablet by mouth in the evening as neededdextroamphetamine-amphetamine (ADDERALL) 5 mg tablet Indications: Attention deficit hyperactivity disorder (ADHD), combined type Take one tablet by mouth between 12 pm and 1 pm as needed 30 tablet ActiveStart: 06-28-2025 End: 81-16-9788wmms 1 capsule by mouth once daily in the morningamphetamine- dextroamphetamine XR (ADDERALL XR) 20 mg 24 hr capsule Indications: Attention deficit hyperactivity disorder (ADHD), combined type Take 1 capsule (20 mg total) by mouth every morning. MaxDaily Amount: 20 mg 30 capsule 08/11/2025 08/20/2025 Discontinued (Reorder)Start: 45-55-8562ukbf 1 capsule by mouth once daily in the morningamphetamine-dextroamphetamine XR (ADDERALL XR) 20 mg 24 hr capsule Indications: Attention deficit hyperactivity disorder (ADHD), combined type Take 1 capsule (20 mg total) by mouth every morning. MaxDaily Amount: 20 mg 30 capsule 06/28/2025 ActiveStart: 03-26-2025 End: 90-74-0442nbrb 1 tablet by mouth in the evening as needed, then take 1 tablet by mouth in the evening as neededdextroamphetamine-amphetamine (ADDERALL) 5 mg tablet Indications: Attention deficit hyperactivity disorder (ADHD), combined type Take one tablet by mouth between 12 pm and 1 pm as needed 30 tablet 05/29/2025 06/19/2025 Discontinued (Reorder)Start: 03-26-2025 End: 74-58-3888cjmc 1 capsule by mouth once daily in the morningamphetamine- dextroamphetamine XR (ADDERALL XR) 20 mg 24 hr capsule Indications: Attention deficit hyperactivity disorder (ADHD), combined type Take 1 capsule (20 mg total) by mouth every morning. MaxDaily Amount: 20 mg 30 capsule 05/29/2025 06/19/2025 Discontinued (Reorder)Start: 01-20-2025 End: 39-52-4585gsyi 1 tablet by mouth in the evening as needed, then take 1 tablet by mouth in the evening as neededdextroamphetamine-amphetamine (ADDERALL) 5 mg tablet Indications: Attention deficit hyperactivity disorder (ADHD), combined type Take one tablet by mouth between 12 pm and 1 pm as needed 30 tablet 02/20/2025 03/23/2025 Discontinued (Reorder)Start: 01-20-2025 End: 17-20-7750wyaw 1 capsule by mouth once daily in the morningamphetamine- dextroamphetamine XR (ADDERALL XR) 20 mg 24 hr capsule Indications: Attention deficit hyperactivity disorder (ADHD), combined type Take 1 capsule (20 mg total) by mouth every morning. MaxDaily Amount: 20 mg 30 capsule 02/20/2025 03/23/2025 Discontinued (Reorder)Start: 09-16-2024 End: 63-97-1090fdvs 1 tablet by mouth in the evening as needed, then take 1 tablet by mouth in the evening as neededdextroamphetamine-amphetamine (ADDERALL) 5 mg tablet Indications: Attention deficit hyperactivity disorder (ADHD), combined type Take one tablet by mouth between 12 pm and 1 pm as needed 30 tablet 12/16/2024 01/17/2025 Discontinued (Reorder)Start: 07-09-2024 End: 71-50-8411vedv 2 capsules by mouth once daily in the morningamphetamine- dextroamphetamine XR (ADDERALL XR) 10 mg 24 hr capsule Indications: Attention deficit hyperactivity disorder (ADHD), combined type Take 2 capsules (20 mg total) by mouth every morning. Max Daily Amount: 20 mg 60 capsule 08/08/2024 08/14/2024 Discontinued (Reorder)Start: 06-12-2024 End: 64-56-4613omsf 1 tablet by mouth in the evening as needed, then take 1 tablet by mouth in the evening as neededdextroamphetamine-amphetamine (ADDERALL) 5 mg tablet Indications: Attention deficit hyperactivity disorder (ADHD), combined type Take one tablet by mouth between 12 pm and 1 pm as needed 30 tablet 08/08/2024 09/14/2024 Discontinued (Reorder)Start: 06-12-2024 End: 35-05-8199otcn 1 capsule by mouth once daily in the morningamphetamine- dextroamphetamine XR (ADDERALL XR) 10 mg 24 hr capsule Indications: Attention deficit hyperactivity disorder (ADHD), combined type Take 1 capsule (10 mg total) by mouth every morning. MaxDaily Amount: 10 mg 30 capsule 06/12/2024 07/08/2024 Discontinued (Reorder)Start: 04-08-2024 End: 11-30-4446kauv 1 tablet by mouth in the evening as needed, then take 1 tablet by mouth in the evening as neededdextroamphetamine-amphetamine (ADDERALL) 5 mg tablet Indications: Attention deficit hyperactivity disorder (ADHD), combined type Take one tablet by mouth between 12 pm and 1 pm as needed 30 tablet 05/10/2024 06/10/2024 Discontinued (Reorder)Start: 04-08-2024 End: 44-50-6194fuma 1 capsule by mouth once daily in the morningamphetamine- dextroamphetamine XR (ADDERALL XR) 10 mg 24 hr capsule Indications: Attention deficit hyperactivity disorder (ADHD), combined type Take 1 capsule (10 mg total) by mouth every morning. MaxDaily Amount: 10 mg 30 capsule 05/10/2024 06/10/2024 Discontinued (Reorder)Start: 03-06-2024 End: 75-97-5614mgag 1 capsule by mouth every twenty-four hours in the morning amphetamine-dextroamphetamine XR (ADDERALL XR) 10 mg 24 hr capsule Indications: Attention deficit hyperactivity disorder (ADHD), combined type take one capsule by mouth in the morning 30 capsule 03/06/2024 04/08/2024 Discontinued (Reorder) Start: 01-08-2024 End: 99-85-8110rwqj 1 capsule by mouth once daily in the morningamphetamine- dextroamphetamine XR (ADDERALL XR) 10 mg 24 hr capsule Indications: Attention deficit hyperactivity disorder (ADHD), combined type Take 1 capsule (10 mg total) by mouth in the morning. Max Daily Amount: 10 mg. 30 capsule 02/06/2024 03/06/2024 DiscontinuedStart: 01-08-2024 End: 42-36-0707fytp 1 capsule by mouth once daily in the morningamphetamine- dextroamphetamine XR (ADDERALL XR) 20 mg 24 hr capsule Indications: Attention deficit hyperactivity disorder (ADHD), combined type Take 1 capsule (20 mg total) by mouth every morning. MaxDaily Amount: 20 mg 30 capsule 12/16/2024 01/17/2025 Discontinued (Reorder)etonogestrel 68 mg drug implant (20 sources)ProgestinetonogestreL (NEXPLANON) 68 mg implant 1 each (68 mg total) by subdermal route once. Activeetonogestrel-eluting (Nexplanon) 68 mg contraceptive implant as directed Subcutaneous Owergitvrccrey-wbgk-KG-calcium &mins (THERAGRAN-M) 9 mg iron-400 mcg tablet (20 sources)lewyaoqj-hqva-RG-calcium &mins (THERAGRAN-M) 9 mg iron-400 mcg tablet Take 1 tablet by mouth inthe morning. Iyuaokwlucskyw-cwfl-DR-calcium &mins (THERAGRAN-M) 9 mg iron-400 mcg tablet Take 1 tablet by mouth inthe morning. 0 ActiveMultivitamin preparation (1 source)take 1 tablet by mouth once dailyMultivitamin - 1 tablet Orally Once a day Active Completed/Discontinued Medications MedicationDrug Class(es)DatesSig (Normalized)Sig (Original)24 hr dexmethylphenidate hydrochloride 15 mg extended release oral capsule (1 source)Central Nervous System StimulantStart: 01-08-2024 End: 58-09-4867xmxd 1 capsule by mouth once dailydexmethylphenidate XR (FOCALIN XR) 15 mg 24 hr capsule Indications: Attention deficit hyperactivitydisorder (ADHD), combined type Take 1 capsule (15 mg total) by mouth daily. Max Daily Amount: 15 mg30 capsule 0 01/08/2024 01/08/2024 Discontinued Problems Active Problems Problem ClassificationProblemDateDocumented DateEpisodic/ChronicAttention- deficit, conduct, and disruptive behavior disorders (20 sources)Attention deficit hyperactivity disorder, combined type; Translations: [Attention-deficit hyperactivity disorder, combined type] 28-52-7626GtrngqvGfzjuzdmu-deficit, conduct, and disruptive behavior disorders (1 source)Attention-deficit hyperactivity disorder, combined type; Translations: [Attention-deficit hyperactivity disorder, combined type]Onset: 12-26-2024 ChronicImmunizations and screening for infectious disease (1 source)Encounter for screening for human papillomavirus (HPV); Translations: [ENC SCREENING HUMAN PAPILLOMAVIRUS]Onset: 50-29-1559CzarsqavEjeuqfv examination/evaluation (2 sources)Encounter for general adult medical examination without abnormal findings; Translations: [Encounterfor general adult medical examination without abnormal findings]Onset: 20-47-4912HzhrabqnJpsdthpq codes; unclassified (3 sources)At high risk for breast cancer; Translations: [Other specified personal risk factors, not elsewhereclassified]54-57-7532QoztgpanJmvhgspd codes; unclassified (1 source)Family history of breast cancer; Translations: [Family history of malignant neoplasm of breast]92-67-4866JaqzneogKhfemuua codes; unclassified (1 source)Family history of malignant neoplasm of ovary; Translations: [Family history of malignant neoplasm of ovary]75-92-0563IctlfpocSrfandrx codes; unclassified (1 source)Family history of malignant neoplasm of breast; Translations: [Family history of malignant neoplasmof breast]Onset: 24-33-4045IorgyfalNukkxcxb codes; unclassified (1 source)Family history of malignant neoplasm of ovary; Translations: [Family history of malignant neoplasm of ovary]Onset: 00-09-5538XpwzpznuRqizcjkw codes; unclassified (1 source)Other specified personal risk factors, not elsewhere classified; Translations: [Other specified personal risk factors, not elsewhere classified] Onset: 62-78-8505UqionywtHeaevuwgozff (1 source)Genetic EvaluationOnset: 07-17-2025 Past or Other Problems Problem ClassificationProblemDateDocumented DateEpisodic/ChronicMood disorders (20 sources)Mood disordersOnset: 04-08-2024 Resolved: 25-47-850742865235-83-8572Rwbas screening for suspected conditions (not mental disorders or infectious disease) (10 sources)Encounter for screening for malignant neoplasm of cervix; Translations: [Serum creatinine raised]Onset: 15-96-8934Nixsqwga Results Test NameValueInterpretationReference RangeFacilityBASIC METABOLIC PANLon 99-54-6190Nnuue gap [Moles/Vol]11 mmol/LNormal5-15[facility] Comment on above:Performed By: #### BMP #### [facility] ([id number]) [address], [address] [place], [place] [address]Yexjort [Mass/Vol]9.9 mg/dLNormal8.5-10.5PCentervilleComment on above:Performed By: #### BMP #### [facility] ([id number]) [address], [address] [place], [place] [address]Ectxyxcb [Moles/Vol]101 mmol/VInfeae86-206EdtZhfpfv [facility] HospitalComment on above:Performed By: #### BMP #### [facility] ([id number]) [address], [address] [place], [place] [address]IK1 [Moles/Vol]27 mmol/CEszdtm31-20RohSvoafoCenterville Comment on above:Performed By: #### BMP #### [facility] ([id number]) [address], [address] [place], [place] [address]Tkngknamos [Mass/Vol]1.03 mg/dLHigh0.40-1.00ProKettering Memorial HospitalComment on above:Result Comment: METHOD TRACEABLE TO IDMS STANDARD Performed By: #### BMP #### [facility] ([id number]) [address], [address] [place], [place] [address]PJA/1.73 sq M.predicted among non-blacks MDRD (S/P/Bld) [Vol rate/Area]76 mL/min/{1.73_m2}Normal>59ProKettering Memorial HospitalComment on above: Result Comment: Reported eGFR is based on the CKD-EPI 2020 equation that does not use a race coefficient.Performed By: #### BMP #### [facility] ([id number]) [address], [address] [place], [place] [address]Jlkqabo [Mass/Vol]84 mg/gOMyszpx41-90BtuQtnqqg [facility] Comment on above:Performed By: #### BMP #### [facility] ([id number]) [address], [address] [place], [place] [address]Oljmfkicf [Moles/Vol]4.0 mmol/LNormal3.5-5.0ProKettering Memorial HospitalComment on above:Performed By: #### BMP #### [facility] ([id number]) [address], [address] [place], [place] [address]Oxuvvo [Moles/Vol]139 mmol/IJjlbkq173-595ZoeVtrlxw [place] HospitalComment on above:Performed By: #### BMP #### [facility] ([id number]) [address], [address] [place], [place] [address]Hjaf nitrogen [Mass/Vol]13 mg/dLNormal5-23ProTrihealth HospitalComment on above:Performed By: #### BMP #### [facility] ([id number]) [address] [place], [place] [address]RJX,APTIMA HPV,AGE GDLNon 20-26-3367KVU JO ACOG TESTINGNote. [facility] HealthcareComment on above:TESTS RESULT FLAG UNITS REF RANGE LAB Clinician Provided Cytology Information Source.............Cervix;Endocervix No. of containers..01 ThinPrep Vial Age Sparkle GARCIA Karen... FLAG LEGEND: L-Low Normal,H-High Normal,LL-Alert Low,HH-Alert High <-Panic Low,>-Panic High,A-Abnormal,AA-Critical Abnormal Performed at: 01 =[facility] [address] Tracie Jacobs MD, IGP, RFX APTIMA HPV ASCUNote.[facility] HealthcareComment on above:TESTS RESULT FLAG UNITS REF RANGE LAB DIAGNOSIS: 02 NEGATIVE FOR INTRAEPITHELIAL LESION OR MALIGNANCY. Specimen adequacy: 02 Satisfactory for evaluation. Endocervical and/or squamous metaplastic cells (endocervical component) are present. Performed by: 02 Marck Malave, Splitter Operator ([facility]) . 02 Note: Note 02 The Pap smear is a screening test designed to aid in the detection of premalignant and malignant conditions of the uterine cervix. It is not a diagnostic procedure and should not be used as the sole means of detecting cervical cancer. Both false-positive and false-negative reports do occur. Test Methodology: Note 02 This liquid based ThinPrep(R) pap test was screened with the use of an image guided system. . 02 The HPV DNA reflex criteria were not met with this specimen result therefore, no HPV testing was performed. FLAG LEGEND: L-Low Normal,H-High Normal,LL-Alert Low,HH-Alert High <-Panic Low,>-Panic High,A-Abnormal,AA-Critical Abnormal Performed at: [address] [address] Tracie Jacobs MD, Performed at: =G - [facility] [address] [id number] Feeder Associate: Tracie Jacobs MD, Phone: [phone] Performed at: - [facility] [id number] Feeder Associate: Tracie Jacobs MD, Phone: [phone] BRUSH-SPATULA CERVIX ENDOCERVIX CLINISYNCNOUT HealthcareCytology Cervical or vaginal smear or scraping studyon 51-20-3308LMNY HealthcarePAP ACOG PANEL 2: 21 to 29on 09-15-2022..NormalThe [facility] Portage Medical CenterComment on above:Performed By: #### [id number] #### [facility] [address] [place] [address] Dr. Elizabeth PerkinsAge Gdln ACOG Bviypsk28-09RpnffePngKettering Health Dayton on above:Performed By: #### [id number] #### [facility] [address] [place] [address] Dr. Elizabeth PerkinsDIAGNOSIS:CommentAvita Health System Ontario Hospital on above: Result Comment: NEGATIVE FOR INTRAEPITHELIAL LESION OR MALIGNANCY.Performed By: #### [id number] #### [facility] [address] [place] [address] Dr. Elizabeth PerkinsMethodology:CommentAvita Health System Ontario Hospital on above: Result Comment: This liquid based ThinPrep(R) pap test was screened with the use of an image guided system.Performed By: #### [id number] #### [place] [address] Dr[address] Elizabeth PerkinsNote:CommentAvita Health System Ontario Hospital on above:Result Comment: The Pap smear is a screening test designed to aid in the detection of premalignant and malignant conditions of the uterine cervix. It is not a diagnostic procedure and should not be used as the sole means of detecting cervical cancer. Both false-positive and false-negative reports do occur. .Performed By: #### [id number] #### [facility] [address] [place] [address] Dr. Elizabeth PerkinsPerformed by:CommentAvita Health System Ontario Hospital on above: Result Comment: Davon Piedra, Splitter Operator (ASCP)Performed By: #### [id number] #### [facility] [address] [place] [address] Dr. Elizabeth PerkinsReflex Criteria:CommentAvita Health System Ontario Hospital on above:Result Comment: The HPV DNA reflex criteria were not met with this specimen result therefore, no HPV testing was performed. .Performed By: #### [id number] #### [facility] [address] [place] [address] Dr. Elizabeth PerkinsSpecimen adequacy:CommentAvita Health System Ontario Hospital on above:Result Comment: Satisfactory for evaluation. Endocervical and/or squamous metaplastic cells (endocervical component) are present.Performed By: #### [id number] #### [facility] [address] [address] [address] Elizabeth PerkinsAlbumin [Mass/volume] in Serum or PlasmaOrdered By: Brendan Smith on 44-75-7103Wwtrlzx [Mass/Vol]4.2 g/dL3.2-5.5FPremier Health Miami [facility] South Cholesterol [Mass/volume] in Serum or PlasmaOrdered By: Brendan Smith on 47-43-7252Kuacfptnhtr [Mass/Vol]207 mg/zD796-223LtuhyzoczChillicothe HospitalComment on above:Chol less than 200 mg/dl low risk Chol 201-239 mg/dl borderline risk Chol 240 mg/dl and greater high riskCholesterol in LDL Calc [Mass/Vol]Ordered By: Brendan Smith on 36-22-9441Wwsyahgnurg in LDL [Mass/Vol]110 mg/dL0-100 Ch[facility]icothe HospitalComment on above:LDL ATP III CLASSIFICATION LDL less than 100 mg/dL Optimal LDL 100-129 mg/dL Near or above optimal LDL 130-159 mg/dL Borderline high LDL 160-189 mg/dL High LDL greater than 189 mg/dL Very highCholesterol in VLDL Calc [Mass/Vol]Ordered By: Brendan Smith on 24-40-8374Jlokxmshihw in VLDL [Mass/Vol]15 mg/dLChillicothe HospitalComprehensive Metabolic Empon 97-69-3200Vgdjkeo [Mass/Vol]4.2 g/dLNormal3.2-5.5FPremier Health Miami Valley Hospital SouthComment on above:Performed By: #### EBS CMP, EBS LIPID #### [facility] [address] [place] [address] USAAlbumin/Globulin [Mass ratio]1.6 {ratio}Parkwood HospitalComment on above:Performed By: #### EBS CMP, EBS LIPID #### [facility] [address] [place] [address] USAALP [Catalytic activity/Vol]47 U/VQptlzs13-11PkxwogiqtChillicothe HospitalComment on above:Performed By: #### EBS CMP, EBS LIPID #### [facility] [address] [place] [address] USAALT [Catalytic activity/Vol]35 U/WLalrsd14-31LwgrjdhymChillicothe HospitalComment on above:Performed By: #### EBS CMP, EBS LIPID #### [facility] [address] [place] [address] USAAST [Catalytic activity/Vol]33 U/YEgpvbr55-44DlwrxsruhChillicothe HospitalComment on above:Performed By: #### EBS CMP, EBS LIPID #### [facility] [address] [place] [address] USABilirubin [Mass/Vol]0.4 mg/dLNormal0.3-1.2FPremier Health Miami Valley Hospital SouthComment on above:Performed By: #### EBS CMP, EBS LIPID #### [facility] [address] [place] [address] USACalcium [Mass/Vol]9.7 mg/dLNormal8.2-10.2FPremier Health Miami Valley Hospital SouthComment on above:Performed By: #### EBS CMP, EBS LIPID #### [facility] [address] [place] [address] USAChloride [Moles/Vol]103 mmol/HVeijzd25-450HmvorhqrwChillicothe HospitalComment on above:Performed By: #### EBS CMP, EBS LIPID #### [facility] [address] [place] [address] USACO2 [Moles/Vol]27.8 mmol/UXqomzs28.0-30.0Chillicothe HospitalComment on above:Performed By: #### EBS CMP, EBS LIPID #### [facility] [address] [place] [address] USACreatinine [Mass/Vol]1.07 mg/dLHigh0.44-1.03Chillicothe HospitalComment on above:Performed By: #### EBS CMP, EBS LIPID #### [facility] [address] [place] [address] USAEstimated GFR ( Claritza> 60NormalChillicothe HospitalComment on above:Result Comment: GFR estimated reference range: According to KDOQI guidelines, <60 ml/min/1.73m2 is sufficient to diagnose a patient with chronic kidney disease.Performed By: #### EBS CMP, EBS LIPID #### [facility] [address] [place] [address] USAEstimated GFR (Non- Am> 60NormalChillicothe HospitalComment on above:Performed By: #### EBS CMP, EBS LIPID #### [facility] [address] [place] [address] USAGlobulin (S) [Mass/Vol]2.6 g/dLNormalChillicothe HospitalComment on above:Performed By: #### EBS CMP, EBS LIPID #### [facility] [address] [place] [address] USAGlucose [Mass/Vol]82 mg/rHBstlkt78-231CgagswzylChillicothe HospitalComment on above:Performed By: #### EBS CMP, EBS LIPID #### [facility] [address] [place] [address] USAPotassium [Moles/Vol]4.6 mmol/LNormal3.5-5.1FPremier Health Miami Valley Hospital SouthComment on above:Performed By: #### EBS CMP, EBS LIPID #### [place] [address] USAProtein [Mass/Vol]6.8 g/dLNormal6.1-7.9Ch[facility]icothe HospitalComment on above:Performed By: #### EBS CMP, EBS LIPID #### [facility] [address] [place] [address] USASodium [Moles/Vol]139 mmol/TZyrtra614-049ItlsyuunjChillicothe HospitalComment on above:Performed By: #### EBS CMP, EBS LIPID #### [facility] [address] [place], [place] [address] USAUrea nitrogen [Mass/Vol]11 mg/dLNormal9-23Chillicothe HospitalComment on above:Performed By: #### EBS CMP, EBS LIPID #### [facility] [address] [place] [address] USACreatinine and Glomerular filtration rate.predicted panel (S/P/Bld)Ordered By: Brendan Smith on 87-77-3669Fgkwqfikef [Mass/Vol]1.07 mg/dL 0.44-1.03Chillicothe HospitalEstimated glomerular filtration rate (GFR) non- AmericanOrdered By: Brendan Smith on 84-11-4551CSB/1.73 sq M.predicted among non-blacks MDRD (S/P/Bld) [Vol rate/Area]> 60 mL/MinChillicothe HospitalGlobulin Calc (S) [Mass/Vol]Ordered By: Brendan Smith on 87-11-7568Hmkeeuld (S) [Mass/Vol]2.6 g/dLChillicothe Hospital Laboratory - Chemistry and Chemistry - challengeOrdered By: Brendan Smith on 93-11-8638Bhukwrq [Mass/Vol]82 mg/wM10-479EwhsropzdChillicothe HospitalLipid Profileon 05-49-4541Zhdcxtgdoyx [Mass/Vol]207 mg/xLLwwb659-908UjaucxcdqChillicothe HospitalComment on above:Result Comment: Chol less than 200 mg/dl low risk Chol 201-239 mg/dl borderline risk Chol 240 mg/dl and greater high riskPerformed By: #### EBS CMP, EBS LIPID #### [facility] [address] [place] [address] USACholesterol in HDL [Mass/Vol]82 mg/dFLwmbgu77-84ZhqwwxbbrChillicothe HospitalComment on above:Result Comment: HDL CHOL ATP-III CLASSIFICATION Cardiovascular Risk HDL > or equal to 60 mg/dL LOW HDL < 40 mg/dL HIGHPerformed By: #### EBS CMP, EBS LIPID #### [facility] [address] [place] [address] USACholesterol.total/Cholesterol in HDL [Mass ratio]2.5 {ratio}Normal<5.0Chillicothe HospitalComment on above:Result Comment: PERFORMED BY: [facility] [address] [place] [address] PATHOLOGIST [employer] POLISHER ESTELA DOWLING M.D.Performed By: #### EBS CMP, EBS LIPID #### [facility] [address] [place] [address] USALDL Cholesterol,Sobrfwywaq275 mg/dLHigh0-100Chillicothe HospitalComment on above:Result Comment: LDL ATP III CLASSIFICATION LDL less than 100 mg/dL Optimal LDL 100-129 mg/dL Near or above optimal LDL 130-159 mg/dL Borderline high LDL 160-189 mg/dL High LDL greater than 189 mg/dL Very highPerformed By: #### EBS CMP, EBS LIPID #### [facility] [address] [place] [address] USATriglyceride w/Ucjczh08 mg/rRTrjjsm52-745EhyidyouiChillicothe HospitalComment on above:Result Comment: TRIG ATP III CLASSIFICATION TRIG less than 150 mg/dL Normal TRIG 150-199 mg/dL Borderline high TRIG 200-500 mg/dL High TRIG greater than 500 mg/dL Very high Standard traceable to the Center for Disease Conrtrol and Prevention (CDC) test method.Performed By: #### EBS CMP, EBS LIPID #### [facility] [address] [place] [address] USAVLDL GYWRALPSZMX42 mg/dLNormalChillicothe HospitalComment on above:Performed By: #### EBS CMP, EBS LIPID #### [facility] [address] [place] [id number] USANo Panel InformationOrdered By: Brendan Smith on 26-19-3872Ftrdrqcxc GFR ()> 60 mL/MinChillicothe HospitalComment on above:GFR estimated reference range: According to KDOQI guidelines, <60 ml/min/1.73m2 is sufficient todiagnose a patient with chronic kidney disease.Pharmacy Creatinine Clearance (ChemN/[facility] HospitalTriglycerides Tyuqyx85 mg/oN55-276HxgzeidzyChillicothe HospitalComment on above:TRIG ATP III CLASSIFICATION TRIG less than 150 mg/dL Normal TRIG 150-199 mg/dL Borderline high TRIG 200-500 mg/dL High TRIG greater than 500 mg/dL Very high Standard traceable to the Center for Disease Conrtrol and Prevention (CDC) test method.Protein [Mass/volume] in Serum or PlasmaOrdered By: Brendan Smith on 89-96-5751Ludgpbq [Mass/Vol]6.8 g/dL6.1-7.9[facility] Hospital Serum or plasma alanine aminotransferase measurement without P-5'-P (enzymatic activiOrdered By: Brendan Smith on 18-11-7931FTA No additional P-5'-P [Catalytic activity/Vol]35 U/B29-43CtzakhfbnMercy Health St. Charles Hospitalerum or plasma albumin/globulin mass ratioOrdered By: Brendan Smith on 04-07-2022 Albumin/Globulin [Mass ratio]1.6 {ratio}[facility] St. Charles Hospitalerum or plasma alkaline phosphatase measurement (enzymatic activity/volume)Ordered By: Brendan Smith on 76-24-4242LFH [Catalytic activity/Vol]47 U/C17-66BlmpyxjyvMercy Health St. Charles Hospitalerum or plasma aspartate aminotransferase measurement (enzymatic activity/volume)Ordered By: Brendan Smith on 54-07-9959YTP [Catalytic activity/Vol]33 U/D30-60QnfhurignMercy Health St. Charles Hospitalerum or plasma calcium measurement (mass/volume)Ordered By: Brendan Smith on 72-45-2699Cvnmguv [Mass/Vol]9.7 mg/dL8.2-10.2FKettering Health Daytonerum or plasma chloride measurement (moles/volume)Ordered By: Brendan Smith on 04-07-2022 Chloride [Moles/Vol]103 mmol/E13-581VwwupqgklMercy Health St. Charles Hospitalerum or plasma high density lipoprotein (HDL) cholesterol measurementOrdered By: Brendan Smith on 60-22-3693Mhvwcuqpsxn in HDL [Mass/Vol]82 mg/zP68-85HaqswvhdsChillicothe HospitalComment on above:HDL CHOL ATP-III CLASSIFICATION Cardiovascular Risk HDL > or equal to 60 mg/dL LOW HDL < 40 mg/dL HIGHSerum or plasma potassium measurement (moles/volume)Ordered By: Brendan Smith on 61-50-6404Ntrbzmurw [Moles/Vol]4.6 mmol/L3.5-5.1FKettering Health Daytonerum or plasma sodium measurement (moles/volume)Ordered By: Brendan Smith on 49-95-9838Masald [Moles/Vol]139 mmol/J370-012FkalzrfqiMercy Health St. Charles Hospitalerum or plasma total bilirubin measurement (mass/volume) Ordered By: Berndan Smith on 02-69-9081Uzhtfvwny [Mass/Vol]0.4 mg/dL0.3-1.[address] Charles Hospitalerum or plasma total carbon dioxide measurement (moles/volume)Ordered By: Brendan Smith on 49-02-7022FS2 [Moles/Vol] 27.8 mmol/L22.0-30.0Mercy Health St. Charles Hospitalerum or plasma total cholesterol/high density lipoprotein (HDL) cholesterol mass ratOrdered By: Brendan Smith on 75-31-5629Nadraffreke.total/Cholesterol in HDL [Mass ratio]2.5 {ratio}[facility] Health St. Charles Hospitalerum or plasma urea nitrogen measurement (mass/volume)Ordered By: Brendan Smith on 89-40-9928Othc nitrogen [Mass/Vol]11 mg/dL07-08[facility] Hospital Vital Signs Date TimeVital SignValuePerforming JbyxjsmhjTjfzjqoe82-65-6970 08:57-0400Body mass index (BMI) [Ratio]21.13 kg/t6WrhecaAng Clark MD Work Phone: [facility]06-16-2025 08:57-0400Body aothkm40.61 kgAng Clark MD Work Phone: [facility]06-16-2025 08:57-0400Diastolic blood nhbsyzbb75 mm[Hg]Ang Clark MD Work Phone: [facility]06-16-2025 08:57-0400Heart rate 61 /minAng Clark MD Work Phone: [facility]06-16-2025 08:57-0400 Respiratory rate16 /minAng Clark MD Work Phone: [facility]06-16-2025 08:57-9068LsI5% (BldA) [Mass fraction]98 %Ang Clark MD Work Phone: [facility]06-16-2025 08:57-0400Systolic blood pwkmtoxv067 mm[Hg]Ang Clark MD Work Phone: [facility]12-02-2024 13:09-0500Body mass index (BMI) [Ratio]21.6 kg/y3Vtyou Elana DO Work Phone: [facility] HealthcareHrkqxefhns35-34-5795 13:09-0500Body cumzbs06.88 kgCorey Elana DO Work Phone: [facility] HealthcareOrtsnrpijx01-50-4572 13:09-0500Diastolic blood mcymnnjd69 mm[Hg]Dannyrosa Sonio DO Work Phone: [facility] HealthcareXnolbkpwhg54-86-9815 13:09-0500Systolic blood mm[Hg]Danny Sonio DO Work Phone: [facility] HealthcareTarvywkgbv52-73-5776 15:58-0400Body wnysiy504.1 Andrey Clark MD Work Phone: [facility]06-24-2024 15:58-0400Body mass index (BMI) [Ratio]21.13 kg/n3ZoidbxAng Clark MD Work Phone: [facility]06-24-2024 15:58-0400Body skzryg41.61 kgAng Clark MD Work Phone: [facility]06-24-2024 15:58-0400Diastolic blood zkawdpvg87 mm[Hg]Ang Clark MD Work Phone: [facility]06-24-2024 15:58-0400Heart rate 50 /minAng Clark MD Work Phone: [facility]06-24-2024 15:58-0400 Respiratory rate18 /minAng Clakr MD Work Phone: [facility]06-24-2024 15:58-4797FbM9% (BldA) [Mass fraction]96 %Ang Clark MD Work Phone: [facility]06-24-2024 15:58-0400Systolic blood qenksnui908 mm[Hg]Ang Clark MD Work Phone: [facility]03-25-2024 08:42-0400Body sgrwyz684.1 cmRyaquelin Clark MD Work Phone: [facility] CenterAM[facility]03-25-2024 08:42-0400Body mass index (BMI) [Ratio]21.63 kg/d0YlsasqAng Clark MD Work Phone: [facility] CenterAM[facility]03-25-2024 08:42-0400Body .97 kgAng Clark MD Work Phone: [facility] HospitalRed[facility]03-25-2024 08:42-0400Diastolic blood agigpsyq33 mm[Hg]Ang Clark MD Work Phone: [facility]Red[facility]03-25-2024 08:42-0400Heart rate 64 /minAng Clark MD Work Phone: [facility] CenterAM[facility]03-25-2024 08:42-0400 Respiratory rate18 /minAng Clark MD Work Phone: [facility]03-25-2024 08:42-6559VsY5% (BldA) [Mass fraction]92 %Ang Clark MD Work Phone: [facility] HospitalRed[facility]03-25-2024 08:42-0400Systolic blood esndlfkk886 mm[Hg]Ang Clark MD Work Phone: [facility] HospitalRed[facility] Corporation08-10-2022 09:00-0400Body vszxyg477.37 cmJerubio Garcia Other [facility] [employer] Other 08-10-2022 09:00-0400Body mass index (BMI) [Ratio] 20.42 kg/z0IxiaacjyGracy Garcia Other [employer] Other 08-10-2022 09:00-0400Body dhahdyhqjvf70.9 [degF] Gracy Radha Other [employer] Other 08-10-2022 09:00-0400Body ngejby12.52 kgGracy Garcia Other [employer] Other 08-10-2022 09:00-0400Diastolic blood vpjjgujo88 mm[Hg] Gracy Radha Other [employer] Other 08-10-2022 09:00-0400Respiratory rate18 /minGracy Radha Other [employer] Other 08-10-2022 09:00-9362ClN5% (BldA) [Mass fraction]96 % Gracy Radha Other [employer] Other 08-10-2022 09:00-0400Systolic blood psmtgbru525 mm[Hg] Gracy Radha Other [employer] Other Encounters Encounter DateEncounter TypeCare ProviderFacilityStart: 08-20-2025 End: 54-31-6039BgtbfzIezrnl P Colby MD Work Phone: [facility] Internal MedicineComment on above:Attention deficit hyperactivity disorder (ADHD), combined typeStart: 08-10-2025 End: 51-06-8736XkyfroGamtvi P Colby MD Work Phone: [facility] Internal MedicineComment on above:Attention deficit hyperactivity disorder (ADHD), combined typeStart: 07-31-2025 End: 90-74-7009Warxdblyi encounterMontse Daly [facility] Work Phone: [facility] -GENETICSComment on above:Verbal Re-Assessment (Genetic Testing Result Disclosure)Start: 07-17-2025 End: 97-42-0380Pqkjsdgl SupportMontse Dulce Malika [facility] Work Phone: [facility] -GENETICSComment on above:Family history of malignant neoplasm of breast (Primary Dx); At high risk for breast cancer; Family history of ovarian cancerStart: 07-04-2025 End: 70-72-7139YembyvPkravs P Colby MD Work Phone: [facility] Internal MedicineComment on above:Attention deficit hyperactivity disorder (ADHD), combined typeStart: 07-01-2025 End: 27-23-7009Prjdnfhkr encounterKelalfred Vega [facility] Work Phone: [facility] -GENETICSComment on above:GENETICS (CLERICAL)Start: 06-19-2025 End: 65-49-0715Ktogmyhsc encounterTerneo Newton [facility] Internal MedicineStart: 06-19-2025 End: 27-48-0748Hlngvr outpatient visit 25 minutesAng Clark MD Work Phone: [facility] Internal MedicineComment on above:Attention deficit hyperactivity disorder (ADHD), combined type (Primary Dx); At high risk for breast cancerStart: 06-19-2025 End: 73-38-4916gyqwfuqmjoDGPLNK P COLBYBarnesville Hospitaltart: 05-28-2025 End: 53-90-8345BnwdltSqnzum P Colby MD Work Phone: [facility] Internal MedicineComment on above:Attention deficit hyperactivity disorder (ADHD), combined typeStart: 04-28-2025 End: 29-01-2725YgnkgeRoakki P Colby MD Work Phone: [facility] Internal MedicineComment on above:Attention deficit hyperactivity disorder (ADHD), combined typeStart: 03-31-2025 End: 80-98-3063Bwneie outpatient visit 15 minutesAng Clark MD Work Phone: [facility] Internal MedicineComment on above:Attention deficit hyperactivity disorder (ADHD), combined type (Primary Dx)Start: 03-31-2025 End: 36-97-9524qgkdrrxnelJKRMTH P COLBYProMedica Rubalcava HospitalStart: 03-23-2025 End: 67-53-6798XstvjqDbbkws P Colby MD Work Phone: [facility] Internal MedicineComment on above:Attention deficit hyperactivity disorder (ADHD), combined typeStart: 02-19-2025 End: 83-84-2848PdhelhDokwdq P Colby MD Work Phone: [facility] Internal MedicineComment on above:Attention deficit hyperactivity disorder (ADHD), combined typeStart: 01-17-2025 End: 49-07-3499YdxwswJrookt P Colby MD Work Phone: [facility] Internal MedicineComment on above:Attention deficit hyperactivity disorder (ADHD), combined typeStart: 12-27-2024 End: 57-79-0217aloxtwmuioCUWKJN P COLBYProMedica Rubalcava HospitalStart: 12-26-2024 End: 24-26-9621Vwpojo outpatient visit 15 Juli Clark MD Work Phone: [facility] Internal MedicineComment on above:Attention deficit hyperactivity disorder (ADHD), combined type (Primary Dx); Elevated serum creatinineStart: 12-26-2024 End: 79-03-7213hoqvktnjacZQQMKA P COLBYProMedica Rubalcava HospitalStart: 12-15-2024 End: 44-74-0818SbmgyjEbctge P Colby MD Work Phone: [facility] Internal MedicineComment on above:Attention deficit hyperactivity disorder (ADHD), combined typeStart: 11-15-2024 End: 52-32-6355ShaymjWtgcjb P Colby MD Work Phone: [facility] Internal MedicineComment on above:Attention deficit hyperactivity disorder (ADHD), combined typeStart: 10-15-2024 End: 90-65-0115MbofuwQsarzt P Colby MD Work Phone: [facility] MedicineComment on above:Attention deficit hyperactivity disorder (ADHD), combined typeStart: 09-27-2024 End: 92-90-8613Kuwhrt outpatient visit 15 minutesAng Clark MD Work Phone: [facility] MedicineComment on above:Attention deficit hyperactivity disorder (ADHD), combined type (Primary Dx)Start: 09-27-2024 End: 18-05-4206kfteusbjwwHVYNNK P COLBYProMedica Greenwood HospitalStart: 09-16-2024 End: 10-61-2114Xpmkhz flowsheetCorey Elana DO Work Phone: [facility] OBStart: 09-16-2024 End: 50-84-0952Gezfgg flowsheetCorey Elana DO Work Phone: [facility] OBStart: 09-16-2024 End: 45-15-3255Zojnvramu Result EncounterCorey Elana DO Work Phone: [facility] External Department UnsolicitedStart: 09-16-2024 End: 28-56-0245Ovonutg encounter procedureCorey Elana DO Work Phone: [facility] Work Phone: Start: 09-16-2024 End: 07-27-3577Pshejxuu preventive med est patient 18-39 yrsCorey Elana DO Work Phone: [facility] OBComment on above:Well woman exam with routine gynecological examStart: 09-16-2024 End: 97-51-3933mnmuoiskaxETOEM FAZIONot AvailableStart: 09-14-2024 End: 09-99-3548JmqddvEaxpar P Colby MD Work Phone: [facility]erca [facility] Internal MedicineComment on above:Attention deficit hyperactivity disorder (ADHD), combined typeStart: 08-14-2024 End: 56-72-8648FfyobjUmhyot P Colby MD Work Phone: [facility] Internal MedicineComment on above:Attention deficit hyperactivity disorder (ADHD), combined typeStart: 08-08-2024 End: 32-21-8108GosdeuHeqbub P Colby MD Work Phone: [facility] Internal MedicineComment on above:Attention deficit hyperactivity disorder (ADHD), combined typeStart: 07-08-2024 End: 96-27-8279Evmcoy outpatient visit 15 Juli Clark MD Work Phone: [facility] Internal MedicineComment on above:Attention deficit hyperactivity disorder (ADHD), combined typeStart: 06-10-2024 End: 39-43-6257EmgteaTbifzmi BarreM[facility] Comment on above:Attention deficit hyperactivity disorder (ADHD), combined type Start: 05-10-2024 End: 22-69-8678DafxktTtcsq [place] [facility] Internal Medicine Comment on above:Attention deficit hyperactivity disorder (ADHD), combined type Start: 04-08-2024 End: 00-18-4254Jdzjgi outpatient visit 25 minutesAng Clark MD Work Phone: [facility] Internal MedicineComment on above:Attention deficit hyperactivity disorder (ADHD), combined type (Primary Dx); Elevated serum creatinineStart: 03-06-2024 End: 08-81-3435BescczPjqajf P Colby MD Work Phone: [facility] Internal MedicineComment on above:Attention deficit hyperactivity disorder (ADHD), combined typeStart: 02-05-2024 End: 84-43-9814HphyreVtwfic P Colby MD Work Phone: [facility] Internal MedicineComment on above:Attention deficit hyperactivity disorder (ADHD), combined typeStart: 89-26-7618Ygvzqj Radha Clark MD Work Phone: [facility] Internal MedicineComment on above:Elevated serum creatinine (Primary Dx); Decreased GFRStart: 01-08-2024 End: 61-03-2738Jixkcc outpatient visit 25 minutesAng Clark MD Work Phone: [facility] MedicineComment on above:Attention deficit hyperactivity disorder (ADHD), combined type (Primary Dx); Screening, lipidStart: 09-06-2022 End: 96-03-6264bxhhaniiynUG DANNY FAZIOFacility:H4Lujwm: 05-25-2022 End: 44-65-1250bbiqkolzeyBfitnvss Kaple Other Nort [employer] Other Start: 30-97-0617Ujkbsonna for general adult medical examination without abnormal findingsGracy RodriguezG [facility] [place] Start: 90-86-5353Zbetmem preventive medicine new pt age 18-39yrsGracy Garcia [facility] HealthyStart: 04-07-2022 End: 97-94-4906Ltmoowqb [facility] RT 250Start: 02-13-2018 End: 72-90-8494ZdioaeghdmGEIRSV [facility] Hospitaltart: 07-27-2017 End: 69-55-4090CdhgmftenxPYBGJQCY NOT IN [facility] Procedures DateProcedureProcedure DetailPerforming ClinicianStart: 41-89-6119Ikkufi-up visitFollow-upRACHEL Tana CLARKStart: 01-27-5709Qrclc depression screening assessmentAng Clark MD Work Phone: Start: 77-92-6244DRQ,APTIMA HPV,AGE GDLNCorey Elana DO Work Phone: Start: 84-73-9021Hesodsuoxtd observation [Identifier] in Cervix by Cyto stainAng Clark MD Work Phone: Start: 56-66-7665Zjkkq depression screening assessment Ang Clark MD Work Phone: Start: 67-24-0754Mvonr depression screening assessment Ang Clark MD Work Phone: Start: 75-71-7841Hbvw cerv/vag auto thin layer prep mnl screenCorey Elana DO Work Phone: Start: 92-74-1541Xhutomqfhuy observation [Identifier] in Cervix by Cyto stainAng Clark MD Work Phone: Plan of Treatment DateCare ActivityDetailAuthorStart: 18-19-9139CJjQ,Tdap and Td Vaccines (8 - Td or Tdap)DTaP,Tdap and Td Vaccines (8 - Td or Tdap)[facility] SystemStart: 37-42-7171Pnfozhhdi for malignant neoplasm of cervixPap SmearProMedica Health SystemStart: 88-24-8357Drfhrgp ScreeningTobacco ScreeningOhioHealth Nelsonville Health Centerca [facility] Start: 26-30-6525Dmmvu BMI ScreeningAdult BMI ScreeningSelect [facility] Start: 52-57-2129Fqzvybjlwv ScreeningDepression ScreeningOhioHealth Nelsonville Health Centerca [facility] Start: 43-89-6510Nsnhrzm ScreeningTobacco ScreeningOhioHealth Nelsonville Health Centerca Health SystemStart: 60-08-8558Ccvrhez ScreeningTobacco ScreeningOhioHealth Nelsonville Health Centerca Health SystemStart: 09-24-2025 End: 89-63-7628Asvrjka encounter /10/2025 2:00 PM EST Office Visit [facility] [address] [phone] Danny Huitron, DO [address] [address] [facility] BCP OBStart: 09-17-2025 End: 09-16-3775Avieyolmcrfo consultation with naogshg7209/17/2025 9:30 AM EST Telemedicine [facility] [address] [place] [phone] Ang Clark MD [address] [address] [facility] MedicineStart: 33-31-9427Mugrdmyrs for malignant neoplasm of cervixPap Smear [facility] SystemStart: 07-17-2025 End: 51-82-8817Cqlqqhgg Ueiujlz1807/17/2025 1:00 PM EDT Clinical Support [facility] [address] [place] [phone] Montse Daly, [facility] [address] [facility], [address] [place] [address] [facility] DIV[facility] OF [facility] -GENETICSStart: 06-19-2025 End: 49-53-5729Ovoetnkepvff consultation with fsonzxw3206/19/2025 12:15 PM EDT Telemedicine [facility] [address] [place] [phone] Ang Clark MD [address] [place] [address] [facility] MedicineStart: 06-17-2025 End: 36-57-7995Xfasnuysmgnj consultation with mzcbhkg9506/17/2025 12:00 PM EDT Telemedicine [facility] [address] [place] [phone] Ang Clark MD [address] [place] [address] [facility] MedicineStart: 58-95-5081QBKPU-19 Vaccine ( season)COVID-19 Vaccine ( season)[facility] SystemStart: 15-88-7161Kmnyfccnx vaccinationInfluenza VaccineProElyria Memorial Hospital SystemStart: 52-43-0063Pmxzn BMI ScreeningAdult BMI ScreeningProElyria Memorial Hospital SystemStart: 53-22-8555Qvrmhxuujp ScreeningDepression ScreeningProElyria Memorial Hospital SystemStart: 97-84-1807Bizplgd ScreeningTobacco ScreeningOhioHealth Nelsonville Health Centerca [facility] Hospitaltart: 03-31-2025 End: 51-43-6371Gmgkcfh encounter qebtggotj65/16/2025 9:00 AM EDT Office Visit [facility] [address] [facility] [place] [phone] Agn Clark MD [address] [address] [facility] Start: 32-45-1826Ozujn BMI ScreeningAdult BMI ScreeningL[facility] Start: 01-26-3100Rnxboguwha ScreeningDepression ScreeningLake County [facility] Start: 33-83-7984Mfjxbfl ScreeningTobacco ScreeningSelect [facility] SystemStart: 12-26-2024 End: 29-75-2664Zzwgnmvgpnoi consultation with gqqsppw2612/26/2024 12:00 PM EDT Telemedicine [facility] [address] [facility] [place] [phone] Ang Clark MD [address] [address] [facility] MedicineStart: 10-08-2024 End: 58-17-7160Vlgcrlfmpulj consultation with jqhcifs8210/08/2024 8:00 AM EST Telemedicine [facility] [address] [facility] [place] [phone] Ang Clark MD [address] [address] [facility] MedicineStart: 09-16-2024 End: 89-64-9993Kwhkdzz encounter vgmtmjwyz82/02/2024 1:00 PM EST Office Visit [facility] [address] [place] [address] Danny Huitron DO [address] [place] [address] ArrivedADVENTIST HEALTH DELANO OBComment on above:ArrivedStart: 07-08-2024 End: 22-54-8351Jonkiedstfik consultation with jcgudom0907/08/2024 4:30 PM EDT Telemedicine [facility] [address] [place] [phone] [place] [address] [place] [address] [facility] MedicineStart: 68-47-6721WIZYH-19 Vaccine ( season)COVID-19 Vaccine ( season)[facility] SystemStart: 46-03-9157LPQLA-19 Vaccine ( season)COVID-19 Vaccine ()[facility] Start: 56-24-2702Vceawupls vaccinationMissouri Southern HealthcareStart: 04-08-2024 End: 24-61-1775Tvruuni encounter sucgtzubp69/24/2024 4:00 PM EDT Office Visit [facility] [address] [place] [phone] [place] [address] [place] [address] [facility] Start: 01-23-2024 End: 23-43-6899Ykcxgif encounter /09/2024 2:30 PM EDT Appointment Traci Mol[facility] [place] [facility] [address] [place], [phone] PoxIniahv Viral Mol[facility] [place] [facility] LabStart: 01-09-2024 End: 38-71-4089Nduiapj encounter uumthnele07/26/2024 7:10 AM EDT Appointment Traci Molina [place] [facility] [address], [phone] EeqYvhoad [facility] - LabStart: 85-01-3426TWKMG-19 Vaccine ( season)COVID-19 Vaccine ( season)[facility] Start: 49-06-2363VMuG,Tdap and Td Vaccines (7 - Td or Tdap)DTaP,Tdap and Td Vaccines (7 - Td or Tdap)[facility]: 40-85-2380Qhpvd metabolic 2000 panel - Serum or PlasmaBasic Metabolic Panel Lab Routine Attention deficit hyperactivity disorder (ADHD), combined type 1 O ccurrences starting 01/08/2024 until 01/07/2025[facility] CenterCellAegis Devices [facility] HospitalComment on above:1 Occurrences starting 01/08/2024 until 01/07/2025 End: 42-96-4176Qdyml metabolic 2000 panel - Serum or PlasmaBasic Metabolic Panel Lab Routine Elevated serum creatinine Decreased GFR 1 Occurrences starting until 01/08/2025[employer] Work Phone: Comment on above:1 Occurrences starting 01/09/2024 until 01/08/2025 End: 47-15-4098Xpade metabolic 2000 panel - Serum or PlasmaBasic Metabolic Panel Lab Routine Attention deficit hyperactivity disorder (ADHD), combined type Earlene vated serum creatinine 1 Occurrences starting 12/26/2024 until 12/26/2025 [facility] Center[facility] Work Phone: Comment on above:1 Occurrences starting 12/26/2024 until 12/26/2025ytology Cervical or vaginal smear or scraping studyPap Smear Pathology and Cytology Routine Well woman exam with routine gynecological exam Ordered: 09/16/2024[facility] [employer] Work Phone: comment on above:Ordered: 09/16/2024 End: 66-69-7422Mpklg 1996 panel - Serum or PlasmaLipid profile Lab Routine Screening, lipid 1 Occurrences starting 01/08/2024 until 01/07/2025[employer] Work Phone: Comment on above:1 Occurrences starting 01/08/2024 until 01/07/2025 End: 97-24-3263ClbxmyeyziOibbpcispg (clean catch) Lab Routine Elevated serum creatinine Decreased GFR 1 Occurrences audjjmws82/26/2024 until 01/08/2025 [facility] SystemComment on above:1 Occurrences starting 01/09/2024 until 01/08/2025 Immunizations Immunization DateImmunizationNotesCare JvbfxipeJlaupoyb52-46-7204wocwscaeo, injectable, quadrivalent, preservative freeRachel Eduardo SR Work Phone: [facility] WestZqycic24-43-3420ixhkthvgf virus vaccine, unspecified formulationRachel Eduardo SR Work Phone: [facility]06-23-2022tetanus toxoid, reduced diphtheria toxoid, and acellular pertussis vaccine, adsorbedRachel Eduardo SR Work Phone: [facility] WestNsrfly55-64-0335Lnvbivbvn, injectable, Madin [place] Canine Kidney, preservative free, quadrivalentRamiral Eduardo SR Work Phone: [facility] WestYnznwj88-88-5430unacrhmjr B vaccine, adult dosageRamiral Eduardo SR Work Phone: [facility] WestDkjddu66-07-8631uqnziggsd B vaccine, adult dosageHeidil Eduardo SR Work Phone: [facility] WestWxzaov96-83-9558edalymqcg, injectable, quadrivalent, preservative freeAng Clark MD Work Phone: [facility] WestMstege21-77-7721uloipwktz, injectable, quadrivalent, preservative freeRazachary Clark MD Work Phone: [facility] WestUlmtfg43-32-1470ekfywpqae A vaccine, pediatric/adolescent dosage, 2 dose scheduleAng Clark MD Work Phone: [facility]08-07-2012human papilloma virus vaccine, quadrivalentRazachary Clark MD Work Phone: [facility] WestTsgsad23-83-4764hiftxaeynszos polysaccharide (groups A, C, Y and W-135) diphtheria toxoid conjugate vaccine (MCV4P)Ang Clark MD Work Phone: [facility]05-01-2012human papilloma virus vaccine, quadrivalentAng Clark MD Work Phone: [facility] WestSnhvfe62-70-6949nyvskioly A vaccine, pediatric/adolescent dosage, 2 dose scheduleAng Clark MD Work Phone: [facility]01-24-2012human papilloma virus vaccine, quadrivalentAng Clark MD Work Phone: [facility]01-24-2012tetanus toxoid, reduced diphtheria toxoid, and acellular pertussis vaccine, adsorbedAng Clark MD Work Phone: [facility] WestRvsnyk98-38-1269xvsacfesdp, tetanus toxoids and acellular pertussis vaccine, unspecified formulationAng Clark MD Work Phone: [facility]08-06-2001measles, mumps and rubella virus vaccineAng Clark MD Work Phone: [facility] WestYbyvpb79-24-2190blrdesrtfu, tetanus toxoids and pertussis Cecy Clark MD Work Phone: [facility] WestKcabvc24-01-1882tzabxvrjxlh influenzae type b vaccine, conjugate unspecified formulationAng Clark MD Work Phone: [facility] WestGubqlp39-04-3880nzfrvtyezo vaccine, unspecified formulationAng Clark MD Work Phone: [facility] WestQnqxrt31-85-2158nglgljoynx, tetanus toxoids and pertussis vaccineAng Clark MD Work Phone: [facility]09-15-1997measles, mumps and rubella virus Cecy Clark MD Work Phone: [facility] WestIbxeet60-29-0298dnxpsbnmmc, tetanus toxoids and pertussis vaccineAng Clark MD Work Phone: [facility] WestZezetw78-70-3180bhvprdbxv B vaccine, pediatric or pediatric/adolescent dosageHeidil Eduardo SR Work Phone: [facility] WestJqkpbn61-44-0302quguvlsnhx vaccine, unspecified formulationchel Eduardo SR Work Phone: [facility] WestBqiamm66-11-3680yvolxasfkf, tetanus toxoids and pertussis vaccinechel Eduardo SR Work Phone: [facility] WestAmyazn84-28-3584bjjceswzxgr influenzae type b vaccine, conjugate unspecified formulationchel Eduardo SR Work Phone: [facility] WestHwekwi32-81-6665suzwxiinog vaccine, unspecified formulationchel Eduardo SR Work Phone: [facility] WestYwuude45-83-2591ayjupvzwlj, tetanus toxoids and pertussis vaccinechel Eduardo SR Work Phone: [facility] WestKwpfuh93-16-0791ujvpmmbawcl influenzae type b vaccine, conjugate unspecified formulationchel Eduardo SR Work Phone: [facility] WestWpadpw92-73-0657zbaowasvz B vaccine, pediatric or pediatric/adolescent dosageRacherogelio Clark MD Work Phone: [facility] WestTqlugc25-33-1935tzgxddknii vaccine, unspecified formulationchel Eduardo SR Work Phone: [facility] WestZlziff09-06-0334finudjtdvjq influenzae type b vaccine, conjugate unspecified formulationchel Eduardo SR Work Phone: [facility] WestPznndt47-37-3404rvvvsxjkm B vaccine, pediatric or pediatric/adolescent dosageRachel Eduardo SR Work Phone: [facility] Payers DatePayer CategoryPayerPolicy [id number] [facility] Care - PP[employer] .[id number] Health InsuranceASCENSION [facility]ON [facility] [id number] [id number] Managed Care - [facility] [id number] [id number] 2.16.840.1.459876.3.57[id number] 2.16.840.1.449685.3.57[id number] [id number] [id number] 2.16.840.1.317703.3.57[id number] 2.16.840.1.556633.3.57[id number] 2.840.1.623213.3.57[id number] 2.0.1.99525[id number] [id number] Self-paySelf [id number] Social History DateTypeDetailFacilityTobacco smoking status NHISUnknown if ever smokedMansfield Hospital Work Phone: Start: 11-97-6466Wux Assigned At [facility] Centertart: 11-26-2020 End: 54-39-0555Kgc Assigned At [facility] [employer] Other Start: 08-30-2023 End: 50-44-4677Iyxekig smoking status NHISNever smoked tobaccoNOUT Healthcare Start: 09-12-2023 End: 43-28-9649Ukljvpkwn beverage intakeCurrent drinker of alcohol (finding)[facility] HealthcareStart: 11-26-2020 End: 65-21-3527Ltqndkh of Social functionNOMS HealthcareHow often to you have a drink containing alcohol?Monthly or lessNOMS HealthcareHow many standard drinks containing alcohol do you have on a typical day?3 or 4NOMS HealthcareHow often do you have 6 or more drinks on 1 occasion?NeverNOMS HealthcareStart: 09-05-2023 Gender identityIdentifies as female gender (finding)[facility] Start: 67-54-5349Pozrcs orientationHeterosexual (finding)[facility] HealthcareStart: 01-08-2024 End: 96-70-7059Znrokwz use and exposureSmokeless tobacco non-userSelect [facility] SystemStart: 09-27-2024 End: 15-28-0291Ttloosgmx beverage intakeEx-drinker (finding)[facility] WestHow hard is it for you to pay for the very basics like food, housing, medical care, and heatingNot hard at allAtrium Health Cabarrustart: 11-02-2021 Alcohol CommentRAREPCleveland Clinic Hillcrest Hospital SystemStart: 02-83-1412XxsKxtyus (finding) [facility] Cabarrustart: 78-67-1323Tlg assigned at birthNot on file [facility] WestNEGATED: Highlighted rowStart: NINFHistory of tobacco use Passive smokerL[facility] Clinical Notes 05-25-2022 to 07-31-2025 Note Date & UijuYwtgJdmnivpi51-39-1553 Miscellaneous Notes* Telephone Encounter - DAIANA Scott - 07/31/2025 8:43 AM EDT LVM for patient to return call to schedule genetics results phone disclosure. x1 * Telephone Encounter - Mary Ellen Liriano - 07/31/2025 8:43 AM EDT 08/01/2025, 10:56 AM PT RETURNED MONTSE'S CALL SCHEDULED CALL TODAY BETWEEN 2:30 - 3:15 NOTE PT STATED SHE WORKS [employer] AND WILL TRY TO ANSWER DJO * Telephone Encounter - Montse Cardona Stevebacilio, [facility] - 07/31/2025 8:43 AM EDT Laurel Ochoa : 1995 DOS: 08/01/25 This is the follow up genetics documentation for Laurel Ochoa who pursued genetic counseling at the request of Dr. Ang Clark to discuss her family history of breast and ovarian cancer. Ispent less than 15 minutes over the phone with her, discussing her negative test results. Summary: Ms. Ochoa underwent CancerNext-Expanded + RNA testing through [facility] for 77 genes. No mutations were found. Medical History: For the complete medical history, see the clinic note from the original genetic counseling visit. Ms. Ochoa is a woman who has no history of cancer at age 30 y.o.. She has not started breastcancer screening. Her ovaries and uterus are intact. Ms. Ochoa has no history of skin cancer. Ms. Ochoa has not had a colonoscopy, which is expected given her age. Family History: The pedigree was documented and is available in the electronic medical record. Family History Problem Relation Age of Onset Breast cancer Mother 61 negative genetic testing 2023 Ovarian cancer Paternal Aunt 35 recurrence? Breast cancer Paternal Aunt 50 Breast cancer Maternal Grandmother 57 sisters also had breast ca Ovarian cancer Maternal Grandmother 82 [place] Breast Cancer Maternal Grandmother 65 Lung cancer Maternal Grandfather + smoking Test Results and Interpretation: The following genes on CancerNext-Expanded + RNA were tested for sequence and deletion/duplication errors (77 total): AIP, ALK, APC, ADELE, AXIN2, BAP1, BARD1, BMPR1A, BRCA1, BRCA2, BRIP1, CDC73, CDH1,CDK4, CDKN1B, CDKN2A, CEBPA, CHEK2, CTNNA1, DDX41, DICER1, EGFR, EPCAM, ETV6, FH, FLCN, GATA2, GREM1, HOXB13, KIT, LZTR1, MAX, MBD4, MEN1, MET, MITF, MLH1, MSH2, MSH3, MSH6, MUTYH, NF1, NF2, NTHL1, PALB2, PDGFRA, PHOX2B, PMS2, POLD1, POLE, POT1, MPMMG0T, PTCH1, PTEN, RAD51C, RAD51D, RB1, RET, RPS20, RUNX1, SDHA, SDHAF2, SDHB, SDHC, SDHD, SMAD4, SMARCA4, SMARCB1, SMARCE1, STK11, SUFU, DARP272, TP53, TSC1, TSC2, VHL, WT1 . No mutations were identified. Testing was completed July 2025. Testing included analysis of the RNA product of all of these genes to identify mutations which might be missed with DNA analysis alone. Because testing was initiated in an individual without a personal history of the cancers associatedwith these genes, the results are considered inconclusive in defining her exact risk of developing the cancers seen in her family. There are several ways to interpret why a pathogenic mutation was not identified: There may be a detectable mutation in one of these genes in her family that she did not inherit. There may be a mutation in these genes that is not detectable by current commercial testing. There may be a gene yet to be identified and described that is responsible for her family history of cancer. The cancers in her family may be sporadic/environmental and not due to a genetic predisposition. Risk Assessment: Ms. Ochoa understands that her risk to develop the cancers seen in her family remains elevated because of her family history. Screening recommendations include annual mammograms beginning at 40. [place] to her providers if they want to start breast imaging at an earlier age. Genetic counseling and testing is recommended for her father and sister, who may have a mutation which Ms. Ochoa did not inherit. For family members in [facility] and [facility], a genetic counseling appointment can be scheduled at a [facility] facility by calling [phone]. A physician referral is required and can be faxed to [phone]. For those who are not in the area, a local genetic counselor can be found at [facility]. Plan: 1. Inform relatives of negative results. 2. Ms. Ochoa remains at increased risk of the cancers seen in the family and should discuss screening with her physician. 3. Encourage father and sister to be tested. Testing in relatives may help us to better interpret Ms. Ochoa's results. A copy of this letter is being sent to Ms. Ochoa for her records. As genetics progresses, we expect that additional genes will be discovered and will become available for testing. Ms. Ochoa should contact us every couple years to learn if updated testing is available. If you have any questions,please feel free to call the office at [phone]. Sincerely, MONTSE DALY [facility] Licensed Genetic Counselor CC: MD Danny Melendez DO Total time spent was less than 15 minutes on date of encounter: Reviewing and interpreting genetic testing results (not reported separately) Communicating results to the patient/family/caregiver Documenting results disclosure in the electronic health record documented in this encounterWashington County Tuberculosis HospitalDryad Dylrte09-36-5857 Telephone encounter Note* Telephone Encounter - DAIANA Scott - 07/31/2025 8:43 AM EDT LVM for patient to return call to schedule genetics results phone disclosure. x1 [facility] Work Phone: [phone] Telephone encounter Note* Telephone Encounter - Mary Ellen Liriano - 07/31/2025 8:43 AM EDT 08/01/2025, 10:56 AM PT RETURNED MONTSE'S CALL SCHEDULED CALL TODAY BETWEEN 2:30 - 3:15 NOTE PT STATED SHE WORKS [employer] AND WILL TRY TO ANSWER DJO [facility]10-16-2025 Telephone encounter Note* Telephone Encounter - DAIANA Scott - 07/31/2025 8:43 AM EDT Laurel Lauren Bj : 1995 DOS: 08/01/25 This is the follow up genetics documentation for Laurel Ochoa who pursued genetic counseling at the request of Dr. Ang Clark to discuss her family history of breast and ovarian cancer. Ispent less than 15 minutes over the phone with her, discussing her negative test results. Summary: Ms. Ochoa underwent CancerNext-Expanded + RNA testing through [facility] for 77 genes. No mutations were found. Medical History: For the complete medical history, see the clinic note from the original genetic counseling visit. Ms. Ochoa is a woman who has no history of cancer at age 30 y.o.. She has not started breastcancer screening. Her ovaries and uterus are intact. Ms. Ochoa has no history of skin cancer. Ms. Ochoa has not had a colonoscopy, which is expected given her age. Family History: The pedigree was documented and is available in the electronic medical record. Family History Problem Relation Age of Onset Breast cancer Mother 61 negative genetic testing 2023 Ovarian cancer Paternal Aunt 35 recurrence? Breast cancer Paternal Aunt 50 Breast cancer Maternal Grandmother 57 sisters also had breast ca Ovarian cancer Maternal Grandmother 82 [place] Breast Cancer Maternal Grandmother 65 Lung cancer Maternal Grandfather + smoking Test Results and Interpretation: The following genes on CancerNext-Expanded + RNA were tested for sequence and deletion/duplication errors (77 total): AIP, ALK, APC, ADELE, AXIN2, BAP1, BARD1, BMPR1A, BRCA1, BRCA2, BRIP1, CDC73, CDH1,CDK4, CDKN1B, CDKN2A, CEBPA, CHEK2, CTNNA1, DDX41, DICER1, EGFR, EPCAM, ETV6, FH, FLCN, GATA2, GREM1, HOXB13, KIT, LZTR1, MAX, MBD4, MEN1, MET, MITF, MLH1, MSH2, MSH3, MSH6, MUTYH, NF1, NF2, NTHL1, PALB2, PDGFRA, PHOX2B, PMS2, POLD1, POLE, POT1, BUXLI5Q, PTCH1, PTEN, RAD51C, RAD51D, RB1, RET, RPS20, RUNX1, SDHA, SDHAF2, SDHB, SDHC, SDHD, SMAD4, SMARCA4, SMARCB1, SMARCE1, STK11, SUFU, MIEI578, TP53, TSC1, TSC2, VHL, WT1 . No mutations were identified. Testing was completed July 2025. Testing included analysis of the RNA product of all of these genes to identify mutations which might be missed with DNA analysis alone. Because testing was initiated in an individual without a personal history of the cancers associatedwith these genes, the results are considered inconclusive in defining her exact risk of developing the cancers seen in her family. There are several ways to interpret why a pathogenic mutation was not identified: There may be a detectable mutation in one of these genes in her family that she did not inherit. There may be a mutation in these genes that is not detectable by current commercial testing. There may be a gene yet to be identified and described that is responsible for her family history of cancer. The cancers in her family may be sporadic/environmental and not due to a genetic predisposition. Risk Assessment: Ms. Ochoa understands that her risk to develop the cancers seen in her family remains elevated because of her family history. Screening recommendations include annual mammograms beginning at 40. Wedef[place] to her providers if they want to start breast imaging at an earlier age. Genetic counseling and testing is recommended for her father and sister, who may have a mutation which Ms. Ochoa did not inherit. For family members in [facility] and [facility], a genetic counseling appointment can be scheduled at a [facility] facility by calling [phone]. A physician referral is required and can be faxed to [phone]. For those who are not in the area, a local genetic counselor can be found at [facility]. Plan: 1. Inform relatives of negative results. 2. Ms. Ochoa remains at increased risk of the cancers seen in the family and should discuss screening with her physician. 3. Encourage father and sister to be tested. Testing in relatives may help us to better interpret Ms. Ochoa's results. A copy of this letter is being sent to Ms. Ochoa for her records. As genetics progresses, we expect that additional genes will be discovered and will become available for testing. Ms. Ochoa should contact us every couple years to learn if updated testing is available. If you have any questions,please feel free to call the office at [phone]. Sincerely, MONTSE DALY, [facility] Licensed Genetic Counselor CC: MD Danny Melendez DO Total time spent was less than 15 minutes on date of encounter: Reviewing and interpreting genetic testing results (not reported separately) Communicating results to the patient/family/caregiver Documenting results disclosure in the electronic health record [facility]10-02-2025 History of Present illness Narrative* DAIANA Scott - 07/17/2025 1:00 PM EDT Laurel Ochoa : 1995 DOS: 07/17/2025 This is the initial genetics consultation for Laurel Ochoa who was seen at the request ofDr. Ang Clark to discuss her family history of breast and ovarian cancer. Ms. Ochoa is seen inthe service of Dr. Erick Castaneda. I spent 37 minutes with Ms. Ochoa collecting and reviewing personal and family medical information, providing genetic risk assessment, and genetic counseling. Ms. Ochoa was unaccompanied to the appointment. SUMMARY: Ms. Ochoa has decided to undergo CancerNext-Expanded + RNA testing through [facility] for thefollowing genes related to hereditary cancer (77 total): AIP, ALK, APC, ADELE, AXIN2, BAP1, BARD1, BMPR1A, BRCA1, BRCA2, BRIP1, CDC73, CDH1, CDK4, CDKN1B, CDKN2A, CEBPA, CHEK2, CTNNA1, DDX41, DICER1, EGFR, EPCAM, ETV6, FH, FLCN, GATA2, GREM1, HOXB13, KIT, LZTR1, MAX, MBD4, MEN1, MET, MITF, MLH1, MSH2, MSH3, MSH6, MUTYH, NF1, NF2, NTHL1, PALB2, PDGFRA, PHOX2B, PMS2, POLD1, POLE, POT1, OSBSR1B, PTCH1, PTEN, RAD51C, RAD51D, RB1, RET, RPS20, RUNX1, SDHA, SDHAF2, SDHB, SDHC, SDHD, SMAD4, SMARCA4, SMARCB1, SMARCE1, STK11, SUFU, OWTM876, TP53, TSC1, TSC2, VHL, WT1 . Results are expected in 2-3 weeks. MEDICAL HISTORY: Ms. Ochoa is a woman who has no history of cancer at age 30 y.o.. She has not started breastcancer screening. Her ovaries and uterus are intact. Menarche is reported at 15. She does not currently have children. She has not reached menopause. She has used OCPs for 5- 9 years. HRT was denied. Ms. Ochoa has no history of skin cancer. Ms. Ochoa has not had a colonoscopy, which is expectedgiven her age. Ms. Ochoa has no history of smoking, and she has 1 alcoholic beverages per month. 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 Environmental exposures were denied. FAMILY HISTORY: Family History Problem Relation Age of Onset Breast cancer Mother 61 negative genetic testing 2023 Ovarian cancer Paternal Aunt 35 recurrence? Breast cancer Paternal Aunt 50 Breast cancer Maternal Grandmother 57 sisters also had breast ca Ovarian cancer Maternal Grandmother 82 [place] Breast Cancer Maternal Grandmother 65 Lung cancer Maternal Grandfather + smoking Ashkenazi Judaism ancestry is denied. The family history is notable for what is listed above. Ms. Ochoa does not have children. The pedigree was documented and is available in the electronic medicalrecord. Of note, Ms. Ochoa's mother had genetic testing through [facility] in 2023 for 71 genes related to hereditary cancers. A copy of the report was provided at today's visit for review, and it was negative or normal. RISK ASSESSMENT: I discussed the possibility of a hereditary cancer syndrome with Ms. Ochoa. Concern for a hereditary cancer predisposition syndrome in her family is moderate. There is a paternal history of ovariancancer at a young age with recurrence, as well as a breast cancer within the same family member - this increases concern for a hereditary condition. Based upon reported personal and/or family history, Ms. Ochoa does meet NCCN guidelines for genetic testing. Ms. Ochoa understands that the best person to undergo genetic testing in the family is an individual who has already developed a cancer that is concerning for a hereditary cause. We discussed whether those individuals in the family would be willing to undergo genetic testing. Ms. Ochoa's paternal aunt is now . Ms. Ochoa does not think that her father would be interested in genetic testing at this time. Given that Ms. Ochoa's relatives are unavailable for genetic testing at this time, she remains a candidate for genetic testing. NCCN guidelines state that testing of an unaffected relative when no affected member is available should be considered. Ms. Ochoa understands that if she tests negative, this may be because there is a mutation in the family that she did not inherit, because the test did not include the culprit gene, or because the cancer in her family was environmental. For this reason, Ms. Ochoa will be considered at increased risk of the cancers in her family until someone else in the family has positive genetic testing. HEREDITARY CANCER GENETIC COUNSELING: We reviewed three different types of cancer: sporadic, familial and hereditary. Sporadic cancer occurs due to environment and chance; there is no genetic test for this type of cancer. About 75-85% ofbreast cancer is thought to be sporadic. Familial cancer is caused by a combination of genetic factors and environmental factors, also known as multifactorial. Familial cancer can be seen in multiple generations but there is not a genetic test for this type of cancer. About 10- 20% of breast cancer is thought to be familial. The last type is hereditary cancer. Hereditary cancer is a genetic predisposition to cancer and is caused by a mutation in a single gene. This is the only type of cancer where risk can be assessed through a genetic test. In addition, when a hereditary cancer and genetic mutation is identified, it is possible to assess risk in relatives of an affected individual. About 5-10% of breast cancer is thought to be hereditary. One in eight women will develop breast cancer during their lifetime. About 5-10% of these breast cancer cases are hereditary, or due to a genetic mutation being passed along in the family. There are genes in our bodies that work to protect us from cancer. When one of these is mutated, a person has less protection and is therefore more likely to develop cancer. An example of this is HBOC (Hereditary Breast and Ovarian Cancer), caused by mutations in the BRCA1 or BRCA2 genes. In the general population, about 1 in 400 people will have a mutation in the BRCA1 and BRCA2 genes (1 in 40 for Ashkenazi Judaism individuals). The cancer risks for individuals with a BRCA1/2 mutation include breast, ovarian, prostate, male breast, pancreatic, and melanoma. These are highlighted in the table below (NCCN v3.2025): Cancer Type General Population Risk with BRCA1 mutation Risk with BRCA2 mutation Female Breast Cancer 12% 60-72% by age 80 55-69% by age 80 Contralateral (2nd) Breast Cancer 2% within 5 years 30-40% within 20 yrs; Up to 60% by age 70 25% within 20 yrs; Up to 62% by age 70 Ovarian Cancer 1-2% 39-58% 13-29% Male Breast Cancer 0.1% 0.2-1.2% 1.8-7.1% Pancreatic Cancer 0.5% <=5% 5-10% Prostate Cancer 12% 7-26% 19-61% Melanoma 2% elevated elevated In addition to BRCA1/2, there are several other genes that are known to increase one's risk for developing breast cancer. These are listed in the table below: Syndromes Associated with Breast Cancer Genes Cancers High Risk Genes Hereditary Breast and Ovarian Cancer syndrome (HBOC) BRCA1, BRCA2 Breast, ovarian, prostate, pancreas, melanoma Li-Fraumeni syndrome TP53 Breast, brain, sarcoma, adrenocortical carcinoma Aldair syndrome PTEN Breast, uterine, thyroid, colon, kidney, melanoma Hereditary Diffuse Gastric Cancer syndrome CDH1 Breast (lobular), diffuse gastric PALB2 Hereditary Cancer syndrome PALB2 Breast, pancreatic, ovarian CHEK2 Breast, kidney, prostate, lymphomas ADELE Breast, pancreatic, prostate Moderate Risk Genes Peutz-Jeghers syndrome STK11 Breast, colon, stomach, pancreatic and others Neurofibromatosis type 1 NF1 Breast, neurofibromas, optic glioma BARD1 Breast RAD51C, RAD51D Breast, ovarian Identifying a hereditary predisposition to cancer on a genetic test allows a person to tailor his or her medical management according to personal risk. Women with mutations in high-risk genes may benefit from increased cancer screening or risk-reducing surgery. Women with mutations in moderate riskgenes are followed with increased screening, often including mammogram and breast MRI alternating every 6 months. If Ms. Ochoa tests positive, specific screening recommendations will be discussed at that time. All of these conditions are inherited in an autosomal dominant manner. Everyone has two copies of every gene in their body: one from each of their biological parents. In a dominant condition, having just one copy with a mutation causes an increased risk of cancer. When a person has a mutation in one of these genes, there is a 50% chance for each of their children to inherit it and also have an increased risk of cancer. TESTING: Genetic tests that cover multiple genes, known as panels, are currently the most efficient way to screen for a genetic cancer predisposition in individuals with suspicious personal and family histories. Laboratories such as [facility], [facility], [facility], and [facility] offer panels of genes for hereditary breast, ovarian, colon cancer, etc. that are increasingly becoming useful in the search of the causative gene. We discussed three potential results: positive for a mutation, negative for a mutation, and a Variant of Unknown Significance (VUS). Positive: If a mutation is found in one of these genes, medical management may be altered accordingly and family members would be offered testing. Each child, full sibling, and parent will be at 50% risk to also have the mutation. Negative: If no mutation is found in the genes tested, there would be no explanation for the cancerin this family. A mutation may not have been found because the person tested did not inherit the mutation in the family, because the test did not include the culprit gene, or because the cancer in the family was environmental rather than hereditary. Screening recommendations would be based on personal risk factors and family history of cancer. Variant of Unknown Significance (VUS): A VUS is a genetic difference where current information makes it impossible to determine if this change contributes to disease (cancer risk) or is harmless. [facility] collects more information over time by testing other people and eventually reclassifies this variant to positive or negative. VUSs are most commonly reclassified to benign and should not be used to change medical management. Reclassification generally happens over the course of several years, but may never happen. Family members should not be tested for VUSs, but should be screened based on family history of cancer. Your Genetic Testing is being sent to [facility]. It is their responsibility to facilitate authorization with your insurance (if needed). [facility] will send a text if your out of pocket is expected to be more than $100. If so, that is your opportunity to contact them to discuss cost - continue billing through insurance, apply for financial assistance and/or change to self-pay amount, which is currently $249. It is important to address options for cost immediately after receiving the text to allow for greatest flexibility as the lab starts the test as soon as sample received. Changing to self-pay is not possible after testing is completed. If you have an out of pocket cost for the test, youwould receive a bill directly from [facility] [facility] and payment would be made directly to them. [employer] is not involved in the billing for the Genetic Test itself. If you have questions, [facility] can be reached at . We also addressed the current federal legislation, VENU, which protects individuals from genetic discrimination in health insurance and employment. More information is available at www.GINAhelp.org. PLAN: 1. Testing for a panel of hereditary cancer genes was ordered today through [facility]. 2. Results are expected in 2-3 weeks. 3. Results will be discussed over the phone. If a mutation is found, Ms. Ochoa will be invited tocome in person to discuss results in more detail. I encouraged Ms. Ochoa to contact me with any questions, concerns, or if the family history changes. I can be reached in the [facility] at [phone]. Thank you, MONTSE DALY, [facility] Licensed Genetic Counselor CC: MD Danny Melendez DO Referenced with permission from the NCCN Clinical Practice Guidelines in Oncology (NCCN Guidelines ) for Genetic/Familial High-Risk Assessment: Breast, Ovarian, Pancreatic and Prostate V.1.2025. National Comprehensive Cancer Network, Inc. 2024. All rights reserved. Accessed [07/17/25]. To view the most recent and complete version of the guideline, go online to NCCN.org. Total time spent was 53 minutes on date of encounter: Preparing to see the patient (e.g., review of medical records and questionnaire) Obtaining personal and family history Performing risk assessment Counseling and educating the patient/family/caregiver Facilitating patient decision-making Ordering genetic testing Documenting initial consultation in the electronic health record Reviewing and interpreting genetic testing results (not reported separately) documented in [facility] Miscellaneous Notes* Telephone Encounter - Brielle Brandon - 07/01/2025 3:02 PM EDT LVM on 07/01/2025 at 3:02 PM asking patient to return call to schedule genetics appointment. SJ * Telephone Encounter - Brielle Brandon - 07/01/2025 3:02 PM EDT Images from the original note were not included. 07/02/25 reply to ins letter: Laurel Ochoa to Me (Selected Message) NG 07/02/25 10:56 AM [employer] has told me this genetic counseling will be covered 100%. I spoke with Abram today. Reference number [id number]. * Telephone Encounter - Kailey Yi - 07/01/2025 3:02 PM EDT 07/17/2025, 2:40 PM [facility] Lab kit DRAWN 07/17/25 TAKEN DOWN TO SHIPPING DOCK DOWNLOADED GENETIC CONSULT NOTES & PEDIGREE TO ANA [facility]UL[facility] LR Mailed 07/17/25 Genetics Consult to patient and faxed/routed to all providers ON 07/17/25 LR * Telephone Encounter - Palmira Modi - 07/01/2025 3:02 PM EDT Mailed 08/01/25 Genetics Follow-up to patient and faxed/routed to all providers - 08/04/2025 at 10:46 AM KD documented in this encounterLake [facility]-20[facility] Telephone encounter Note* Telephone Encounter - Brielle Brandon - 07/01/2025 3:02 PM EDT LVM on 07/01/2025 at 3:02 PM asking patient to return call to schedule genetics appointment. S[facility]25 Telephone encounter Note* Telephone Encounter - Brielle Brandon - 07/01/2025 3:02 PM EDT Images from the original note were not included. 07/02/25 reply to ins letter: Laurel Ochoa to Me (Selected Message) NG 07/02/25 10:56 AM [employer] has told me this genetic counseling will be covered 100%. I spoke with Abram today. Reference number [id number]. [facility] Telephone encounter Note* Telephone Encounter - Kailey Yi - 07/01/2025 3:02 PM EDT 07/17/2025, 2:40 PM [facility] Lab kit DRAWN 07/17/25 TAKEN DOWN TO SHIPPING DOCK DOWNLOADED GENETIC CONSULT NOTES & PEDIGREE TO ANA PAUL[facility] LR Mailed 07/17/25 Genetics Consult to patient and faxed/routed to all providers ON 07/17/25 LR [facility]-16-2025 Telephone encounter Note* Telephone Encounter - Palmira Modi - 07/01/2025 3:02 PM EDT Mailed 08/01/25 Genetics Follow-up to patient and faxed/routed to all providers - 08/04/2025 at 10:46 AM KD [facility]09-04-2025 Miscellaneous Notes* Telephone Encounter - Yanna Newton CMA - 06/19/2025 2:26 PM EDT Patient received a letter from [facility] informing that [facility] would not be in network with [facility] next year and patient could contact physicians office for continuity of care plan to avoid interruptions in care. Patient has insurance through school program and is not eligible to choose a different plan throughopen enrollment periods. Please call patient to advise * Telephone Encounter - Ang Clark MD - 06/19/2025 2:26 PM EDT When she finds a new doctor, typically we would have medical records and notes forwarded. If they are on epic, they should have access automatically otherwise, the new doctor's office would send a HIPAA release * Telephone Encounter - Makenzie Ibrahim CMA - 06/19/2025 2:26 PM EDT Message given to kitty documented in this encounterWashington [facility]-2025 Telephone encounter Note* Telephone Encounter - Yanna Newton CMA - 06/19/2025 2:26 PM EDT Patient received a letter from [facility] informing that [facility] would not be in network with [facility] next year and patient could contact physicians office for continuity of care plan to avoid interruptions in care. Patient has insurance through school program and is not eligible to choose a different plan throughopen enrollment periods. Please call patient to advise [facility]25 Telephone encounter Note* Telephone Encounter - Ang Clark MD - 06/19/2025 2:26 PM EDT When she finds a new doctor, typically we would have medical records and notes forwarded. If they are on epic, they should have access automatically otherwise, the new doctor's office would send a HIPAA release [facility]09-04-2025 Telephone encounter Note* Telephone Encounter - Makenzie Ibrahim CMA - 06/19/2025 2:26 PM EDT Message given to kitty [facility]09-04-2025 History of Present illness Narrative* Ang Clark MD - 06/19/2025 12:15 PM EDT [facility] Department of Internal Medicine Telemedicine Progress Note Patient: Laurel Ochoa : 1995 Date: 06/19/2025 Video Visit via Real-time Synchronous Audiovisual Provider Location: [facility], [facility] [address] [place] [id number] Patient Location: Other Video Visit Consent Statement: I discussed risks, benefits, and alternatives of a real-time synchronous audiovisual consultation with the patient (and any accompanying persons) including the risks that the patient's personal health details and medical records will be discussed over real-time, synchronous, interactive video/audio/telecommunication technology, the visit will not be recorded withoutthe express consent of both the provider and the patient, and that there are some limitations compared to [id number] evaluations. The patient consented to the presence of additional virtual and/or in-person participants. We elected to proceed. Subjective Laurel Ochoa is a 30 y.o. female presenting to clinic for follow up Regimen: adderall XR 20 mg in the morning and adderall 5 mg in afternoon Taking as prescribed: yes; sometimes forgets 2nd dose when shifts change a lot at work Effective: yes High incidence of breath and ovarian cancer on both sides of family Mom recently dx with Breast Ca - ER+ MI+ Her2- Grandma was triple negative Paternal aunt had both breast and ovarian cancer Wants to know if she would benefit from genetic counseling, early breast MRI States that her mom did have genetic testing, not sure what kind of testing her aunt had TC Risk Score: 32% The following portions of the patient's history were reviewed and updated as appropriate: allergies, current medications, past family history, past medical history, past social history, past surgicalhistory, problem list, and medication reconciliation was completed including current medication andpost discharge medication. Objective There were no vitals taken for this visit. The ASCVD Risk score (Ag ALBERTO, et al., 2019) failed to calculate for the following reasons: The 2019 ASCVD risk score is only valid for ages 40 to 79 Depression Screening Physical Exam Vitals and nursing note reviewed. Constitutional: General: She is not in acute distress. Appearance: Normal appearance. She is not ill-appearing or toxic-appearing. HENT: Head: Normocephalic and atraumatic. Nose: Nose normal. Eyes: Extraocular Movements: Extraocular movements intact. Pulmonary: Effort: Pulmonary effort is normal. No respiratory distress. Musculoskeletal: Cervical back: Normal range of motion and neck supple. Neurological: General: No focal deficit present. Mental Status: She is alert and oriented to person, place, and time. Mental status is at baseline. Psychiatric: Mood and Affect: Mood normal. Behavior: Behavior normal. Thought Content: Thought content normal. Judgment: Judgment normal. Pertinent labs reviewed. Assessment/Plan Assessment & Plan Attention deficit hyperactivity disorder (ADHD), combined type Psychological condition is well-controlled. Continue current treatment regimen. Regular aerobic exercise. Psychological condition will be reassessed in 3 months. Orders: amphetamine-dextroamphetamine XR (ADDERALL XR) 20 mg 24 hr capsule; Take 1 capsule (20 mg total) bymouth every morning. Max Daily Amount: 20 mg dextroamphetamine-amphetamine (ADDERALL) 5 mg tablet; Take one tablet by mouth between 12 pm and 1 pm as needed At high risk for breast cancer Mother, maternal grandmother and paternal aunt had breast cancer Grandmother and paternal aunt also had ovarian cancer Agree that patient is high-risk, would benefit from early breast MRI starting at age 30 for screening purposes and genetic testing Will refer to Genetics Orders: [facility] - Hereditary Cancer Genetics; Future Return if symptoms worsen or fail to improve, for Next scheduled follow up. ANG Clark MD Electronically Signed 06/19/2025 2:12 PM Total time spent was 30 minutes: Preparing to see the patient (e.g., [...] This note was completed using a voice station tender system. Every effort was made to ensure accuracy. However, inadvertent computerized station tender errors may be present. Please contact author for any clarification documented in this [facility]08-13-2025 Miscellaneous Notes* Telephone Encounter - Makenzie Ibrahim CMA - 05/28/2025 7:33 PM EDT GRICELDA:6.16.25 NOV:9.4.25 Last refill:7.15.25 documented in this [facility]08-13-2025 Telephone encounter Note* Telephone Encounter - Makenzie Ibrahim CMA - 05/28/2025 7:33 PM EDT GRICELDA:6.16.25 NOV:9.4.25 Last refill:7.15.25 [facility]07-14-2025 Miscellaneous Notes* Telephone Encounter - Makenzie Ibrahim CMA - 04/28/2025 12:33 PM EDT GRICELDA:6.16.25 NOV:9.4.25 Last refill:6.11.25 documented in this [facility]07-14-2025 Telephone encounter Note* Telephone Encounter - Makenzie Ibrahim CMA - 04/28/2025 12:33 PM EDT GRICELDA:6.16.25 NOV:9.4.25 Last refill:6.11.25 [facility]06-[facility] History of Present illness Narrative* Ang Clark MD - 03/31/2025 9:00 AM EDT [facility] Department of Internal Medicine Outpatient Progress Note Patient: Laurel Ochoa : 1995 Date: 03/31/2025 Subjective Laurel Ochoa is a 30 y.o. female presenting to clinic for follow up Taking meds as prescribed Able to give attention to detail, get things done at work and in home setting No change in duration of medication effects No loss of appetite, sleep disruption with medication No chest pain, palpitations or dizziness The following portions of the patient's history were reviewed and updated as appropriate: allergies, current medications, past family history, past medical history, past social history, past surgicalhistory, problem list, and medication reconciliation was completed including current medication andpost discharge medication. Objective BP 100/70 Pulse 61 Resp 16 Wt 57.6 kg (127 lb) SpO2 98% No BMI 21.13 kg/m Depression Screening Total Score: 0 Physical Exam [...] entry. No decreased breath sounds, wheezing, rhonchi orrales. Abdominal: General: Bowel sounds are normal. There [...] grossly intact Psychiatric: Mood and Affect: Mood normal. Behavior: Behavior normal. Thought Content: Thought content normal. Judgment: Judgment normal. Pertinent labs reviewed. Assessment/Plan Assessment & Plan Attention deficit hyperactivity disorder (ADHD), combined type Psychological condition is unchanged. Continue current treatment regimen. Regular aerobic exercise. This patient's use of their controlled substance was reviewed at length at today's visit. They are taking their medication as prescribed without evidence of misuse or diversion. PDMP report was reviewed. Their current use of adderall is indicated at this time due to ongoing benefit with respect to executive functioning and overall quality of life. Psychological condition will be reassessed at the next regular appointment. Return if symptoms worsen or fail to improve, for Next scheduled follow up. ANG Clark MD Electronically Signed 03/31/2025 9:25 AM All elements from this note, including those copied from previous encounters, have been reviewed and appropriately edited by ANG Clark MD. This note was completed using a voice station tender system. Every effort was made to ensure accuracy. However, inadvertent computerized station tender errors may be present. Please contact author for any clarification documented in this [facility]06-08-2025 Miscellaneous Notes* Telephone Encounter - Makenzie Ibrahim CMA - 03/23/2025 5:52 PM EDT GRICELDA:12.26.24 NOV:03.31.25 Last refill:5.8.25 documented in this [facility]06-08-2025 Telephone encounter Note* Telephone Encounter - Makenzie Ibrahim CMA - 03/23/2025 5:52 PM EDT GRICELDA:12.26.24 NOV:03.31.25 Last refill:5.8.25 [facility]05-07-2025 Miscellaneous Notes* Telephone Encounter - Makenzie Ibrahim CMA - 02/19/2025 4:34 PM EDT GRICELDA:3.13.25 NOV:6.16.25 Last refill:4.7.25 documented in this [facility]05-07-2025 Telephone encounter Note* Telephone Encounter - Makenzie Ibrahim CMA - 02/19/2025 4:34 PM EDT GRICELDA:3.13.25 NOV:6.16.25 Last refill:4.7.25 [facility]04-04-2025 Miscellaneous Notes* Telephone Encounter - Makenzie Ibrahim CMA - 01/17/2025 5:48 PM EDT GRICELDA: 3.13.25 Nov 6.16.25 LAST REFILLED 3.3.25 documented in this [facility]04-04-2025 Telephone encounter Note* Telephone Encounter - Makenzie Ibrahim CMA - 01/17/2025 5:48 PM EDT GRICELDA: 3.13.25 Nov 6.16.25 LAST REFILLED 3.3.25 [facility]03-13-2025 History of Present illness Narrative* Ang Clark MD - 12/26/2024 12:00 PM EDT [facility] Department of Internal Medicine Telemedicine Progress Note Patient: Laurel Ochoa : 1995 Date: 12/26/2024 Video Visit via Real-time Synchronous Audiovisual Provider Location: [facility] [address] [place] [phone] Patient Location: Other Video Visit Consent Statement: I discussed risks, benefits, and alternatives of a real-time synchronous audiovisual consultation with the patient (and any accompanying persons) including the risks that the patient's personal health details and medical records will be discussed over real-time, synchronous, interactive video/audio/telecommunication technology, the visit will not be recorded withoutthe express consent of both the provider and the patient, and that there are some limitations compared to ywpo-we-fowa evaluations. The patient consented to the presence of additional virtual and/or in-person participants. We elected to proceed. Subjective Laurel Ochoa is a 29 y.o. female presenting to clinic for follow up Still doing well on current regimen Taking as directed Effects remain consistent Generally uses 5 mg dose in afternoon on weekdays, or on days with 12 hour shifts Not as distractible, getting up or procrastinating Able to take in information effectively and stay on task No loss of appetite or sleep issues The following portions of the patient's history were reviewed and updated as appropriate: allergies, current medications, past family history, past medical history, past social history, past surgicalhistory, problem list, and medication reconciliation was completed including current medication andpost discharge medication. Objective There were no vitals taken for this visit. The ASCVD Risk score (Ag DK, et al., 2019) failed to calculate for the following reasons: The 2019 ASCVD risk score is only valid for ages 40 to 79 Depression Screening Physical Exam Vitals and nursing note reviewed. Constitutional: General: She is not in acute distress. Appearance: Normal appearance. She is not ill-appearing or toxic-appearing. HENT: Head: Normocephalic and atraumatic. Nose: Nose normal. Eyes: Extraocular Movements: Extraocular movements intact. Pulmonary: Effort: Pulmonary effort is normal. No respiratory distress. Musculoskeletal: Cervical back: Normal range of motion and neck supple. Neurological: General: No focal deficit present. Mental Status: She is alert and oriented to person, place, and time. Mental status is at baseline. Psychiatric: Mood and Affect: Mood normal. Behavior: Behavior normal. Thought Content: Thought content normal. Judgment: Judgment normal. Pertinent labs reviewed. Assessment/Plan Assessment & Plan Attention deficit hyperactivity disorder (ADHD), combined type Psychological condition is improving with treatment. Continue current treatment regimen. Regular aerobic exercise. Psychological condition will be reassessed in 3 months. This patient's use of their controlled substance was reviewed at length at today's visit. They are taking their medication as prescribed without evidence of misuse or diversion. PDMP report was reviewed. Their current use of Adderall is indicated at this time due to ongoing benefit with regards to executive functioning and overall quality of life. Orders: Basic Metabolic Panel; Future Elevated serum creatinine No evidence of significant pathology, continue to monitor Orders: Basic Metabolic Panel; Future Return if symptoms worsen or fail to improve, for Next scheduled follow up. ANG Clark MD Electronically Signed 12/26/2024 12:15 PM All elements from this note, including those copied from previous encounters, have been reviewed and appropriately edited by ANG Clark MD. This note was completed using a voice station tender system. Every effort was made to ensure accuracy. However, inadvertent computerized station tender errors may be present. Please contact author for any clarification documented in [facility] encounterL[facility] Miscellaneous Notes* Telephone Encounter - Nina Madrigal CMA - 12/15/2024 3:42 AM EST Last seen 09/27/2024 Next 12/26/2024 documented in this encounterL[facility] Telephone encounter Note* Telephone Encounter - Nina Madrigal CMA - 12/15/2024 3:42 AM EST Last seen 09/27/2024 Next 12/26/2024 [facility] History of Present illness Narrative* Ang Clark MD - 09/27/2024 4:30 PM EST [facility] Department of Internal Medicine Telemedicine Progress Note Patient: Laurel Ochoa : 1995 Date: 09/27/2024 Video Visit via Real-time Synchronous Audiovisual Provider Location: [facility] [address] [place] [phone] Patient Location: Patient's home Video Visit Consent Statement: I discussed risks, benefits, and alternatives of a real-time synchronous audiovisual consultation with the patient (and any accompanying persons) including the risks that the patient's personal health details and medical records will be discussed over real-time, synchronous, interactive video/audio/telecommunication technology, the visit will not be recorded withoutthe express consent of both the provider and the patient, and that there are some limitations compared to [id number] evaluations. The patient consented to the presence of additional virtual and/or in-person participants. We elected to proceed. Subjective Laurel Ochoa is a 29 y.o. 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 Objective There were no vitals taken for this visit. The ASCVD Risk score (Ag DK, et al., 2019) failed to calculate for the following reasons: The 2019 ASCVD risk score is only valid for ages 40 to 79 Depression Screening Physical Exam Vitals and nursing note reviewed. Constitutional: General: She is not in acute distress. Appearance: Normal appearance. She is not ill-appearing or toxic-appearing. HENT: Head: Normocephalic and atraumatic. Nose: Nose normal. Eyes: Extraocular Movements: Extraocular movements intact. Pulmonary: Effort: Pulmonary effort is normal. No respiratory distress. Musculoskeletal: Cervical back: Normal range of motion and neck supple. Neurological: General: No focal deficit present. Mental Status: She is alert and oriented to person, place, and time. Mental status is at baseline. Psychiatric: Mood and Affect: Mood normal. Behavior: Behavior normal. Thought Content: Thought content normal. Judgment: Judgment normal. Pertinent labs reviewed. Assessment/Plan Assessment & Plan Attention deficit hyperactivity disorder (ADHD), combined type Psychological condition is improving with treatment. Continue current treatment regimen. Regular aerobic exercise. Psychological condition will be reassessed in 3 months. This patient's use of their controlled substance was reviewed at length at today's visit. They are taking their medication as prescribed without evidence of misuse or diversion. PDMP report was reviewed. Their current use of adderall is indicated at this time due to ongoing benefit with respect to executive functioning and over-all quality of life. Return if symptoms worsen or fail to improve, for Next scheduled follow up. ANG Clark MD Electronically Signed 09/27/2024 5:06 PM All elements from this note, including those copied from previous encounters, have been reviewed and appropriately edited by ANG Clark MD. This note was completed using a voice station tender system. Every effort was made to ensure accuracy. However, inadvertent computerized station tender errors may be present. Please contact author for any clarification documented in this encounterL[facility]12-[facility] History of Present illness Narrative* Darleen Beyer, JULIET - 09/16/2024 1:00 PM EST Reason for Appointment: Patient ID: Laurel Ochoa is a 29 y.o. female who presents for Well Women Visit Patient presents today for Annual Exam. MEDICATIONS Current Outpatient Medications Medication Instructions amphetamine-dextroamphetamine XR (Adderall XR) 20 MG 24 hr capsule 20 mg, Every morning etonogestrel-eluting (Nexplanon) 68 mg contraceptive implant as directed Subcutaneous ALLERGIES Allergies Allergen Reactions Penicillin G Rash Sulfa Antibiotics Rash PROBLEMS Active Ambulatory Problems Diagnosis Date Noted No Active Ambulatory Problems Resolved Ambulatory Problems Diagnosis Date Noted No Resolved Ambulatory Problems Past Medical History: Diagnosis Date ADHD (attention deficit hyperactivity disorder) ([facility]) Body mass index (BMI) of 20.0 to 20.9 in adult Dyspareunia due to medical condition in female History of menorrhagia Nexplanon insertion Nexplanon removal Urine test negative HISTORY PAST MEDICAL HISTORY SOCIAL HISTORY Past Medical History: Diagnosis Date ADHD (attention deficit hyperactivity disorder) ([facility]) Body mass index (BMI) of 20.0 to 20.9 in adult Dyspareunia due to medical condition in female History of menorrhagia Nexplanon insertion Nexplanon removal Urine test negative Social History Tobacco Use Smoking status: Never Smokeless tobacco: Not on file Substance Use Topics Alcohol use: Yes Drug use: Not on file FAMILY HISTORY Family History Problem Relation Name Age of Onset Thyroid disease Mother Cancer Maternal Grandmother Breast Diabetes Maternal Grandfather Cancer Maternal Grandfather Diabetes Paternal Grandmother Hypertension Paternal Grandmother Heart disease Paternal Grandmother Other (CVA ( cerebral infarction)) Paternal Grandmother SURGICAL HISTORY Past Surgical History: Procedure Laterality Date WISDOM TOOTH EXTRACTION 2014 wisdom teeth REVIEW OF SYSTEMS Review of Systems: Review of Systems Constitutional: Negative. HENT: Negative. Eyes: Negative. Respiratory: Negative. Cardiovascular: Negative. Gastrointestinal: Negative. Genitourinary: Negative. Musculoskeletal: Negative. Skin: Negative. Neurological: Negative. All other systems reviewed and are negative. Hematological: Negative. Endocrine: Negative. Allergic/Immunologic: Negative. OBJECTIVE Objective: Physical Exam Constitutional: Appearance: Normal appearance. She is well-developed. Genitourinary: Vulva normal. Breasts: Breasts are soft. Right: Normal. Left: Normal. Cardiovascular: Rate and Rhythm: Normal rate and regular rhythm. Pulmonary: Effort: Pulmonary effort is normal. Breath sounds: Normal breath sounds. Abdominal: General: Bowel sounds are normal. There is no distension. Palpations: Abdomen is soft. Tenderness: There is no abdominal tenderness. There is no guarding or rebound. Musculoskeletal: General: No swelling. Normal range of motion. Right lower leg: No edema. Left lower leg: No edema. Neurological: Mental Status: She is alert and oriented to person, place, and time. Skin: General: Skin is warm and dry. Psychiatric: Mood and Affect: Mood normal. Behavior: Behavior normal. Vitals and nursing note reviewed. Exam conducted with a block cleaner present. Vitals: Estimated body mass index is 21.6 kg/m as calculated from the following: Height as of 11/28/23: 5' 5 . Weight as of this encounter: 129 lb 12.8 oz. BP: 100/60 No LMP recorded. Patient has had an implant. ASSESSMENT & PLAN ICD-10-CM 1. Well woman exam with routine gynecological exam Z01.419 Pap Smear Annual Exam: Patient presents today for an annual exam. Patient states she is doing well and has no complaints. Pap was obtained without difficulty. No orders of the defined types were placed in this encounter. Follow Up: Patient is to return in one year for annual unless needed otherwise. Documented by Darleen Beyer LPN on behalf of: Danny Huitron DO documented in this encounterMissouri Southern [id number] Miscellaneous Notes* Telephone Encounter - Rafia Alatorre - 08/14/2024 12:47 PM EDT Patient calling stating [facility] is out of 10mg adderall XR. Can we change script back to 20 mg once a day. Please advise * Telephone Encounter - Ang Clark MD - 08/14/2024 12:47 PM EDT Rx sent * Telephone Encounter - Rafia Alatorre - 08/14/2024 12:47 PM EDT Patient would like this [place] go [place] [facility] [place]. Please advise * Telephone Encounter - DEBORAH Staton - 08/14/2024 12:47 PM EDT Pharmacy changed and repended in encounter * Addendum Note - DEBORAH Staton - 08/14/2024 12:47 PM EDTAddended by: LEELEE CHOWDARY on: 08/14/2024 01:44 PM Modules accepted: Orders * Addendum Note - Ang Clark MD - 08/14/2024 12:47 PM EDTAddended by: ANG CLARK on: 08/14/2024 04:56 PM Modules accepted: Orders documented in this encounterL[facility]10-30-[facility] Note* Addendum Note - DEBORAH Staton - 08/14/2024 12:47 PM EDTAddended by: LEELEE CHOWDARY on: 08/14/2024 01:44 PM Modules accepted: Orders [facility] Note* Addendum Note - Ang Clark MD - 08/14/2024 12:47 PM EDTAddended by: ANG CLARK on: 08/14/2024 04:56 PM Modules accepted: Orders [facility] Telephone encounter Note* Telephone Encounter - Rafia Alatorre - 08/14/2024 12:47 PM EDT Patient calling stating [facility] out of [facility]der[facility] XR. Can we change script back to 20 mg once a day. Please advise [facility] Telephone encounter Note* Telephone Encounter - Ang Clark MD - 08/14/2024 12:47 PM EDT Rx sent [facility] Telephone encounter Note* Telephone Encounter - Rafia Alatorre - 08/14/2024 12:47 PM EDT Patient would like this to go to [facility] in [place] if possible. Please advise [facility] Telephone encounter Note* Telephone Encounter - DEBORAH Staton - 08/14/2024 12:47 PM EDT Pharmacy changed and repended in encounter [facility] History of Present illness Narrative* Ang Clark MD - 07/08/2024 4:30 PM EDT [facility] Department of Internal Medicine Telemedicine Progress Note Patient: Laurel Ochoa : 1995 Date: 07/09/2024 Video Visit via Real-time Synchronous Audiovisual Provider Location: [facility] [address] [place] [phone] Patient Location: Patient's home Video Visit Consent Statement: I discussed risks, benefits, and alternatives of a real-time synchronous audiovisual consultation with the patient (and any accompanying persons) including the risks that the patient's personal health details and medical records will be discussed over real-time, synchronous, interactive video/audio/telecommunication technology, the visit will not be recorded withoutthe express consent of both the provider and the patient, and that there are some limitations compared to [id number] evaluations. The patient consented to the presence of additional virtual and/or in-person participants. We elected to proceed. Subjective Laurel Ochoa is a 29 y.o. female presenting to clinic For follow-up Feels XR dose is wearing off sooner than it used to Has been on this dose for about 6 months Takes med around 7 am Used to last until 12 or 1 pm; now seems to last until 10 or 11 am Less focused, more distractible in late morning Usually 5 mg dose lasts a few more hours, to end of shift No past medical history on file. Outpatient Encounter Medications as of 07/08/2024 Medication Sig Dispense Refill dextroamphetamine-amphetamine (ADDERALL) 5 mg tablet Take one tablet by mouth between 12 pm and 1 pm as needed 30 tablet 0 etonogestreL (NEXPLANON) 68 mg implant 1 each (68 mg total) by subdermal route once. epgirzxw-hdgb-JY-calcium &mins (THERAGRAN-M) 9 mg iron-400 mcg tablet Take 1 tablet by mouth inthe morning. [DISCONTINUED] amphetamine-dextroamphetamine XR (ADDERALL XR) 10 mg 24 hr capsule Take 1 capsule (10 mg total) by mouth every morning. Max Daily Amount: 10 mg 30 capsule 0 [DISCONTINUED] amphetamine-dextroamphetamine XR (ADDERALL XR) 20 mg 24 hr capsule Take 1 capsule (20 mg total) by mouth every morning. Max Daily Amount: 20 mg 30 capsule 0 [DISCONTINUED] dextroamphetamine-amphetamine (ADDERALL) 5 mg tablet Take one tablet by mouth between 12 pm and 1 pm as needed 30 tablet 0 No facility-administered encounter medications on file as of 07/08/2024. Allergies Allergen Reactions Penicillins Rash Sulfa (Sulfonamide Antibiotics) Rash infancy Family History Problem Relation Age of Onset Thyroid disease Mother Graves' disease Mother Breast cancer Maternal Grandmother sisters also had breast ca Ovarian cancer Neg Hx Colon cancer Neg Hx Skin cancer Neg Hx Social History Socioeconomic History Marital status: Tobacco Use Smoking status: Never Smokeless tobacco: Never Substance and Sexual Activity Alcohol use: Not Currently Comment: RARE Sexual activity: Yes Partners: Male Social Determinants of Health Financial Resource Strain: Low Risk (01/05/2024) Overall Financial Resource Strain (CARDIA) Difficulty of Paying Living Expenses: Not hard at all Food Insecurity: No Food Insecurity (04/08/2024) Hunger Screening Food Insecurity - Worry: Never True Food Insecurity - Inability: Never True Transportation Needs: No Transportation Needs (01/05/2024) PRAPARE - Transportation Lack of Transportation (Medical): No Lack of Transportation (Non-Medical): No [facility]ceived from [facility] Safety & Environment Housing Instability: Low Risk (01/05/2024) Housing Instability Housing Instability: No The following portions of the patient's history were reviewed and updated as appropriate: allergies, current medications, past family history, past medical history, past social history, past surgicalhistory, problem list, and medication reconciliation was completed including current medication andpost discharge medication. Review of Systems Constitutional: Positive for fatigue. Negative for chills, fever and unexpected weight [...] other systems reviewed and are negative. Objective There were no vitals taken for this visit. The ASCVD Risk score ([place] DK, et al., 2019) failed to calculate for the following reasons: The 2019 ASCVD risk score is only valid for ages 40 to 79 Depression Screening Physical Exam Vitals and nursing note reviewed. Constitutional: General: She is not in acute distress. Appearance: Normal appearance. She is not ill-appearing or toxic-appearing. HENT: Head: Normocephalic and atraumatic. Nose: Nose normal. Eyes: Extraocular Movements: Extraocular movements intact. Pulmonary: Effort: Pulmonary effort is normal. No respiratory distress. Musculoskeletal: Cervical back: Normal range of motion and neck supple. Neurological: General: No focal deficit present. Mental Status: She is alert and oriented to person, place, and time. Mental status is at baseline. Psychiatric: Mood and Affect: Mood normal. Behavior: Behavior normal. Thought Content: Thought content normal. Judgment: Judgment normal. Pertinent labs reviewed. Assessment/Plan 29-year-old female presenting for follow-up of ADHD. Continues to tolerate stimulant therapy without significant adverse effect. Continues to benefit from this treatment strategy however, would advise titrating up dose of extended release Adderall which does not seem to Last the anticipated duration of action. Will continue current Adderall 5 mg tablet in the afternoon. This patient's use of their controlled substance was reviewed at length at today's visit. They are taking their medication as prescribed without evidence of misuse or diversion. PDMP report was reviewed. Their current use of adderall is indicated at this time due to ongoing benefit with respect to executive functioning, ADHDrelated symptoms. Diagnoses and all orders for this visit: Attention deficit hyperactivity disorder (ADHD), combined type - Discontinue: amphetamine-dextroamphetamine XR (ADDERALL XR) 20 mg 24 hr capsule; Take 1 capsule (20 mg total) by mouth every morning. Max Daily Amount: 20 mg - dextroamphetamine-amphetamine (ADDERALL) 5 mg tablet; Take one tablet by mouth between 12 pm and 1 pm as needed Return in about 3 months (around 10/07/2024), or if symptoms worsen or fail to improve, for Next scheduled follow up. ANG Clark MD Electronically Signed 07/09/2024 8:31 AM All elements from this note, including those copied from previous encounters, have been reviewed and appropriately edited by ANG Clark MD. This note was completed using a voice station tender system. Every effort was made to ensure accuracy. However, inadvertent computerized station tender errors may be present. Please contact author for any clarification documented in this encounterLake [facility]08-26-2024 Miscellaneous Notes* Telephone Encounter - Rafia Alatorre - 06/10/2024 3:16 PM EDT Patient called in again for refills. Says she is completely out. documented in this encounterLake [facility]08-26-2024 Telephone encounter Note* Telephone Encounter - Rafia Alatorre - 06/10/2024 3:16 PM EDT Patient called in again for refills. Says she is completely out. [facility] Miscellaneous Notes* Telephone Encounter - Rafia Alatorre - 06/10/2024 10:09 AM EDT Patient requesting refills. Medication pended. Pharmacy updated. Last visit- 04/08/24 Next - 07/08/24 documented in this encounterLake [facility]08-26-2024 Telephone encounter Note* Telephone Encounter - Rafia Alatorre - 06/10/2024 10:09 AM EDT Patient requesting refills. Medication pended. Pharmacy updated. Last visit- 04/08/24 Next - 07/08/24 [facility] Miscellaneous Notes* Telephone Encounter - DEBORAH Mcconnell - 05/10/2024 10:38 AM EDT Patient will be out of medication this weekend and she has to work please do nikolay Last ov 04/08 Next ov 07/08 documented in this encounterLake [facility]07-26-2024 Telephone encounter Note* Telephone Encounter - DEBORAH Mcconnell - 05/10/2024 10:38 AM EDT Patient will be out of medication this weekend and she has to work please do nikolay Last ov 04/08 Next ov 07/08 [facility] History of Present illness Narrative* Ang Clark MD - 04/08/2024 4:00 PM EDT [facility] Department of Internal Medicine Outpatient Progress Note Patient: Laurel Ochoa : 1995 Date: 04/14/2024 Subjective Laurel Ochoa is a 29 y.o. 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 Outpatient Encounter Medications as of 04/08/2024 Medication Sig Dispense Refill etonogestreL (NEXPLANON) 68 mg implant 1 each (68 mg total) by subdermal route once. lptcpgty-sebx-EA-calcium &mins (THERAGRAN-M) 9 mg iron-400 mcg tablet Take 1 tablet by mouth inthe morning. [DISCONTINUED] amphetamine-dextroamphetamine XR (ADDERALL XR) 10 mg 24 hr capsule take one capsule by mouth in the morning 30 capsule 0 amphetamine-dextroamphetamine XR (ADDERALL XR) 10 mg 24 hr capsule Take 1 capsule (10 mg total) by mouth every morning. Max Daily Amount: 10 mg 30 capsule 0 dextroamphetamine-amphetamine (ADDERALL) 5 mg tablet Take one tablet by mouth between 12 pm and 1 pm as needed 30 tablet 0 No facility-administered encounter medications on file as of 04/08/2024. Allergies Allergen Reactions Penicillins Rash Sulfa (Sulfonamide Antibiotics) Rash infancy Family History Problem Relation Age of Onset Thyroid disease Mother Graves' disease Mother Breast cancer Maternal Grandmother sisters also had breast ca Ovarian cancer Neg Hx Colon cancer Neg Hx Skin cancer Neg Hx Social History Socioeconomic History Marital status: Tobacco Use Smoking status: Never Smokeless tobacco: Never Substance and Sexual Activity Alcohol use: Not Currently Comment: RARE Sexual activity: Yes Partners: Male Social Determinants of Health Financial Resource Strain: Low Risk (01/05/2024) Overall Financial Resource Strain (CARDIA) Difficulty of Paying Living Expenses: Not hard at all Food Insecurity: No Food Insecurity (04/08/2024) Hunger Screening Food Insecurity - Worry: Never True Food Insecurity - Inability: Never True Transportation Needs: No Transportation Needs (01/05/2024) PRAPARE - Transportation Lack of Transportation (Medical): No Lack of Transportation (Non-Medical): No [facility] [place] Safety & Environment Housing Instability: Low Risk (01/05/2024) Housing Instability Housing Instability: No The following portions of the patient's history were reviewed and updated as appropriate: allergies, current medications, past family history, past medical history, past social history, past surgicalhistory, problem list, and medication reconciliation was completed including current medication andpost discharge medication. Review of Systems Constitutional: Negative [...] for dizziness, syncope, weakness and light-headedness. Psychiatric/Behavioral: Negative for decreased concentration, dysphoric mood, self-injury and suicidal ideas. The patient is not nervous/anxious. All other systems reviewed and are negative. Objective BP 104/66 (BP Site: Left Arm, BP Postition: Sitting, BP CUFF SIZE: M (9-13 inches)) Pulse 50 Resp 18 Ht 165.1 cm (5' 5 ) Wt 57.6 kg (127 lb) SpO2 96% BMI 21.13 kg/m The ASCVD Risk score (Ag ALBERTO, et al., 2019) failed to calculate for [...] entry. No decreased breath sounds, wheezing, rhonchi orrales. Abdominal: General: Bowel sounds are normal. There [...] Judgment: Judgment normal. Pertinent labs reviewed. Assessment/Plan 29 yo F presenting for follow up. ADHD significantly improved on current regimen. Medication wearing off well before day is over, in part due to long demanding schedule. Will add on short acting adderall in afternoon. This patient's use of their controlled substance was reviewed at length at today's visit. They are taking their medication as prescribed without evidence of misuse or diversion. PDMP report was reviewed. Their current use of adderall is indicated at this time due to ongoing benefit with respect to executive functioning. Will continue monitoring abnormal Cr. Other than dehydration, no apparent triggers for elevation, which has since improved. Seems as though she is near her baseline for last several years. Historical lab data reviewed. Laurel was seen today for follow-up. Diagnoses and all orders for this visit: Attention deficit hyperactivity disorder (ADHD), combined type - dextroamphetamine-amphetamine (ADDERALL) 5 mg tablet; Take one tablet by mouth between 12 pm and 1 pm as needed - amphetamine-dextroamphetamine XR (ADDERALL XR) 10 mg 24 hr capsule; Take 1 capsule (10 mg total) by mouth every morning. Max Daily Amount: 10 mg Elevated serum creatinine Return if symptoms worsen or fail to improve, for Recheck. ANG Clark MD Electronically Signed 04/14/2024 1:48 PM All elements from this note, including those copied from previous encounters, have been reviewed and appropriately edited by ANG Clark MD. This note was completed using a voice station tender system. Every effort was made to ensure accuracy. However, inadvertent computerized station tender errors may be present. Please contact author for any clarification [facility] Miscellaneous Notes* Telephone Encounter - Klaudia Lombardi - 02/05/2024 10:48 AM EDT ANG Clark MD. Patient requesting refill of adderall Last Ov: 01/07 Upcomin/24 Pending, please advise documented in [facility] encounterL[facility] Telephone encounter Note* Telephone Encounter - Klaudia Lombardi - 02/05/2024 10:48 AM EDT ANG Clark MD. Patient requesting refill of adderall Last Ov: 01/07 Upcomin/24 Pending, please advise [facility] [id number] History of Present illness Narrative* Ang Clark MD - 01/08/2024 9:00 AM EDT [facility] Department of Internal Medicine Outpatient Progress Note Patient: Laurel Ochoa : 1995 Date: 01/08/2024 Subjective Laurel Ochoa is a 28 y.o. 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 fiqocsdj-mmiq-MJ-calcium &mins (THERAGRAN-M) 9 mg iron-400 mcg tablet Take 1 tablet by mouth inthe morning. amphetamine-dextroamphetamine XR (ADDERALL XR) 10 mg [...] past medical history, past social history, past surgicalhistory, problem list, and medication reconciliation was completed including current medication andpost discharge medication. Review of Systems Constitutional: Negative [...] BMI 21.63 kg/m The ASCVD Risk score (Ag DK, et al., 2019) failed to calculate [...] entry. No decreased breath sounds, wheezing, rhonchi orrales. Abdominal: General: Bowel sounds are normal. There [...] labs reviewed. Assessment/Plan 28-year-old female presenting to [facility]. Clinical history reviewed and updated as indicated. [...] hr capsule; Take 1 capsule (15 mg total)by mouth daily. Max Daily Amount: 15 mg [...] This note was completed using a voice station tender system. Every effort was made to ensure accuracy. However, inadvertent computerized station tender errors may be present. Please contact author for any clarification documented in this encounterL[facility] Instructions* Patient Instructions* Ang Clark MD - 01/08/2024 9:00 AM EDT [email or web address] documented in this encounterLake [facility]08-10-[facility] Evaluation note* Encounter Date Diagnosis Assessment Notes Treatment Notes Treatment Clinical Notes May, Well adult exam (ICD-10 - Z00.00 ) Recent pillars reviewed with patient. Follow routinely with eye doctor and dentist. Patient is advised to work on healthy diet choices and appropriate servings, weight control, regular exercise as directed, reduced fat intake, and salt avoidance. Patient voiced understanding of this and agrees to this plan. Collisionable Other Evaluation noteNo assessment information available [facility] Work Phone: Evaluation note* Diagnosis Well woman exam with routine gynecological exam Routine gynecological examination documented in this encounter [facility] HealthcareEvaluation [facility]* Diagnosis Attention deficit hyperactivity disorder (ADHD), combined type documented in this encounter [facility]* Diagnosis Attention deficit hyperactivity disorder (ADHD), combined type documented in this encounter [facility]* Diagnosis Attention deficit hyperactivity disorder (ADHD), combined type documented in this encounter [facility] note* Diagnosis Attention deficit hyperactivity disorder (ADHD), combined type- Primary Elevated serum creatinine Other nonspecific findings on examination of blood documented in this encounter [facility] note* Diagnosis Attention deficit hyperactivity disorder (ADHD), combined type documented in this encounter [facility]* Diagnosis Attention deficit hyperactivity disorder (ADHD), combined type- Primary Screening, lipid [facility] Diagnosis Elevated serum creatinine- Primary Other nonspecific findings on examination of blood Decreased GFR [facility]* Diagnosis Attention deficit hyperactivity disorder (ADHD), combined type [facility]* Diagnosis Attention deficit hyperactivity disorder (ADHD), combined type documented [facility]* Diagnosis Attention deficit hyperactivity disorder (ADHD), combined type documented [facility]* Diagnosis Attention deficit hyperactivity disorder (ADHD), combined type documented in [facility]* Diagnosis Attention deficit hyperactivity disorder (ADHD), combined type- Primary documented in [facility]* Diagnosis Attention deficit hyperactivity disorder (ADHD), combined type- Primary Elevated serum creatinine Other nonspecific findings on examination of blood documented [facility]* Diagnosis Attention deficit hyperactivity disorder (ADHD), combined type- Primary documented in [facility]* Diagnosis Attention deficit hyperactivity disorder (ADHD), combined type- Primary At high risk for breast cancer documented in [facility]* Diagnosis Attention deficit hyperactivity disorder (ADHD), combined type [facility]* Diagnosis Family history of malignant neoplasm of breast- Primary At high risk for breast cancer Family history of ovarian cancer Family history of malignant neoplasm of ovary documented in this encounter [facility] SystemHistory general Narrative - Reported* Type Description Date Surgical History [facility] Collisionable Other InstructionsNot on filedocumented in this encounter [facility] filedocumented in this encounter [facility]Not on filedocumented in this encounter [facility] on filedocumented in this encounter [facility] on filedocumented in this encounter [facility]Not on filedocumented in this encounter [facility]Not on filedocumented in this encounter [facility]Not on filedocumented in this encounter [facility]Not on filedocumented in this encounter [facility]ructionsNot on filedocumented in this encounter [facility]ructionsNot on filedocumented in this encounter [facility] Summary Purpose Family History No Family [...] section and content) DATE CREATED AUTHOR 04/05/2018 [facility] DATE CREATED AUTHOR AUTHOR'S ORGANIZ ATION 04/08/2022 [facility] DATE CREATED AUTHOR AUTHOR'S ORGANIZ ATION 09/16/2022 [facility] DATE CREATED AUTHOR AUTHOR'S ORGANIZ ATION 09/17/2024 [facility] DATE CREATED AUTHOR AUTHOR'S ORGANIZ ATION 07/22/2025 [facility] Care Teams (unrecognized sec tion and content) Team Status: Inactive Member Role Status Dates NON STAFF Primary Care Provider Active Brendan Smith Jr, DOAttending ProviderActive Team Status: Active Member Role Status Dates NON STAFF Primary Care Provider Active Team MemberRelationshipSpecialtyStart DateEnd Date Ang Clark MD [address] [address] PCP - GeneralInternal Medicine01/08/24Team MemberRelationshipSpecialtyStart Date End Date Ang Clark MD [address] [address] PCP - GeneralInternal Medicine01/08/24Team MemberRelationshipSpecialtyStart Date End Date Ang Clark MD [address] [address] PCP - GeneralInternal Medicine01/08/24Team MemberRelationshipSpecialtyStart Date End Date Ang Clark MD [address] [place] [address] PCP - GeneralInternal Medicine01/08/24Team MemberRelationshipSpecialtyStart Date End Date Ang Clark MD [address] [place] [address] PCP - GeneralInternal Medicine01/08/24am MemberRelationshipSpecialtyStart Date End Date Ang Clark MD [address] [place] [address] PCP - GeneralInternal Medicine01/08/24Team MemberRelationshipSpecialtyStart Date End Date Ang Clark MD [address] [place] [address] PCP - GeneralInternal Medicine01/08/24Team MemberRelationshipSpecialtyStart Date End Date Ang Clark MD [address] [place] [address] PCP - GeneralInternal Medicine01/08/24am MemberRelationshipSpecialtyStart Date End Date Ang Clark MD [address] [place] [address] PCP - GeneralInternal Medicine01/08/24Team MemberRelationshipSpecialtyStart Date End Date Ang Clark MD [address] [facility] [address] [place] [address] PCP - GeneralInternal Medicine01/08/24Team MemberRelationshipSpecialtyStart Date End Date Ang Clark MD [address] [facility] [address] [place] [address] PCP - GeneralInternal Medicine01/08/24 Goals (unrecognized section and content) Goals may [...] FOR VISIT (unrecogniz ed section and content) ReasonCommentsWell Women VisitReasonOnset DateCommentsMed Vtditz204Reason Onset DateCommentsMed Sllcwx2111/15/2024ReasonOnset DateCommentsMed Refill 02/05/2024easonCommentsMed RefillReasonCommentsFollow-upPatient is here for a 3 month follow up. Patient would like to discuss labsReasonOnset DateCommentsMed Nyttgw1005/10/2024easonCommentsNew PatientPatient is here to establish care. Patient would like to discuss getting ADHD treatment.ReasonOnset DateCommentsMed Szrbpk6506/10/2024easonOnset DateCommentsMed Dqrqca0008/08/2024easonOnset Date CommentsMed Vashav0509/14/2024easonOnset DateCommentsMed Inrvyt9712/15/2024Reason Onset DateCommentsMed Vlcaaa6201/17/2025ReasonOnset DateCommentsMed Refill 02/19/2025ReasonOnset DateCommentsMed Wqzyhf7903/23/2025ReasonCommentsFollow-up3 month checkReasonOnset DateCommentsMed Dgjwqd1204/28/2025ReasonOnset DateComments Med Lwhwwx7805/28/2025ReasonOnset DateCommentsMed Zqzuis9607/04/2025ReasonComments Genetic EvaluationFhx breast cancerSpecialtyDiagnoses / ProceduresReferred By ContactReferred To ContactGenetics Diagnoses At high risk for breast cancer Ang Clark MD [address] [facility] [address] [place] [address] Phone: tel: fax: [facility] [address] [address] Phone: tel: fax: Referral IDStatusReasonStart DateExpiration DateVisits RequestedVisits [id number] Review Specialty Services Required 1ReasonOnset DateCommentsVerbal Re-Cmkdcwindp15/17/2025Genetic Testing Result DisclosureReasonOnset QkbtCtynnhvlAESGHHZY45/16/2025LERICAL ReasonOnset DateCommentsMed Balusv7708/10/2025ReasonOnset DateCommentsMed Refill 08/21/2025 FOR RECORDS PERTAINING TO PATIENTS WHO ARE [...] BE BASED ON THE PRIMARY CLINICAL RECORDS. [facility]. provides no warranty or guarantee of the accuracy or completeness of information in this document.
== END 2025-09-24 21:24 | disposition home or self-care (01) ==
LOC: LAB 21:23
PROVIDERS: Visit Provider Obstetrics & Gynecology
DX: Z01.419 Encounter for gynecological examination (general) (routine) without abnormal findings (principal)
CPT/HCPCS: 88175